=== PATIENT | male | born 1960 | race Caucasian/White ===

== ENCOUNTER 2018-09-04 20:06 | Inpatient (IN) ==
--- OUTSIDE RECORDS SUMMARY | 2018-09-04 20:08 | External Medical Summary | Continuity of Care Document ---
:1960 Author Name Ananya Moon, Provider Address Unavailable Unavailable , Care Team Providers Name Role Phone Eunice Bansal PA-C Unavailable [email or web address] Juan Wong M.D. Unavailable Unavailable Unavailable Unavailable Unavailable Assessments Assessed Problems:Spinal stenosis Problems Spinal stenosis (724.00) (M48.00) Diabetes mellitus (250.00) (E11.9) Hypertension (401.9) (I10) Hyperlipidemia (272.4) (E78.5) Allergies and Adverse Reactions Allergy history not documented Medications Medications not documented Procedures History of Sinus Surgery Status: Complet ed History of Renal Lithotripsy Status: Com pleted History of Knee Arthroscopy (Therapeutic) Status: Completed Immunizations Immunizations not documented Plan of Treatment Planned Observations Planned Goals not documented Results No Known Results Results not documented Encounters Appointment; Eunice Bansal PA-C 17-Sep-2012 9:00 Encounter Diagnosis: Problem not documented
[2018-09-04] MEDS ORDERED: ACETAMINOPHEN 1,000 MG/100 ML VIAL IV STA (20:23)
[2018-09-04] MEDS ORDERED: PIPERACILLIN/TAZOBACTAM 4.5 GM/120 ML BAG IV ONE (20:23)
[2018-09-04] MEDS ORDERED: SODIUM CHLORIDE 0.9% 1000ML 1,000 ML IV ONE (20:23)
[2018-09-04] MEDS ORDERED: ONDANSETRON INJ 2 MG/ML 2 ML VIAL IV STA (20:23)
[2018-09-04] MEDS ORDERED: KETOROLAC TROMETHAMINE 15 MG/ML VIAL IV STA (20:26)
--- NOTE | 2018-09-04 20:45 | XRay Report ---
XR elbow LT min 3V routine CLINICAL HISTORY: fall, pain COMPARISON: None FINDINGS: Alignment of the left elbow is anatomic. Soft tissue swelling overlying the olecranon is n oted. No fracture or evidence for a myelitis. There is no evidence for left elbow joint effusion. IMPRESSION: 1. No acute fracture or joint effusion of the left elbow. 2. No evidence for osteomyelitis. 3. Moderate to marked soft tissue swelling overlying the olecranon. Electronically signed by: Fredis Bryson M.D. 09/04/2018 8:44 PM
[2018-09-04 20:51] LABS: Basophils # (auto) 0.03 K/uL (0-0.2); Basophils % (auto) 0.2 %; Eosinophils # (auto) 0.07 K/uL (0-0.5); Eosinophils % (auto) 0.5 %; Hematocrit (blood only) 33.4 % (42-52); Hemoglobin 11.7 g/dL (14.0-18.0); Immature Granulocytes # (auto) 0.05 K/uL (0.00-0.02); Immature Granulocytes % (auto) 0.3 %; Lymphocytes # (auto) 1.49 K/uL (1.2-3.4); Lymphocytes % (auto) 9.9 %; Mean Corpuscular Volume 82.5 fL (80-100); Mean Platelet Volume 9.1 fL (7.4-10.4); Monocytes # (auto) 1.18 K/uL (0.11-0.59); Monocytes % (auto) 7.9 %; Neutrophils # (auto) 12.17 K/uL (1.4-6.5); Neutrophils % (auto) 81.2 %; Platelet Count 263 K/uL (130-400); RDW Standard Deviation 39.5 fL (36.4-46.3); Red Blood Count 4.05 M/uL (4.7-6.1); White Blood Count 14.99 K/uL (4.8-10.8)
[2018-09-04 21:03] LABS: INR 1.1 (0.9-1.1); Partial Thromboplastin Ratio 1.1; Partial Thromboplastin Time 29.8 Seconds (21.0-31.0); Prothrombin Time 10.9 Seconds (9.0-12.0)
[2018-09-04 21:10] LABS: Albumin Globulin Ratio 0.9 (0.9-2); Albumin Level 3.8 gm/dl (3.4-5.0); BUN Creatinine Ratio 18.4 (10-20); Bilirubin,Total 0.6 mg/dl (0.2-1); Calcium 10.2 mg/dl (8.5-10.1); Creatinine Clr Calc Pharmacy 63.9 ml/min; Est GFR (African American) 52.3; Est GFR (Non-African American) 45.1; Globulin 4.4 gm/dl (2.5-4.0); Potassium 4.3 mmol/L (3.5-5.1); Total Protein 8.2 gm/dl (6.4-8.2)
[2018-09-04 21:21] LABS: Beta-Hydroxybutyrate 1.11 mg/dl (0.2-2.81)
[2018-09-04] MEDS ORDERED: SODIUM CHLORIDE 0.9% 1000ML 500 ML IV ONE (21:22)
[2018-09-04] MEDS ORDERED: NovoLIN-R INSULIN PER UNIT CHARGE IV STA (21:22)
[2018-09-04] MEDS ORDERED: ONDANSETRON INJ 2 MG/ML 2 ML VIAL IV PRN (23:42)
[2018-09-04] MEDS ORDERED: VANCOMYCIN CONSULT ACTIVE PRN (23:42)
[2018-09-04] MEDS ORDERED: NITROGLYCERIN SL 0.4 MG/TAB TAB SL PRN (23:42)
[2018-09-04] MEDS ORDERED: VANCOMYCIN HCL 1,000 MG in SODIUM CHLORIDE 0.9% 250 ML IV SCH (23:42)
[2018-09-04] MEDS ORDERED: PIPERACILL/TAZOBAC CONSULT ACTIVE PRN (23:42)
[2018-09-04] MEDS ORDERED: POLYETHYLENE (MIRALAX) 17 GM PACK PO PRN (23:42)
--- NOTE | 2018-09-04 23:44 | Emergency Department Note ---
Entered by Melody Lara acting as a scribe for History of Present Illness General Chief complaint: Infection Stated complaint: LEFT ELBOW INFECTION Time Seen by Provider: 09/04/18 20:20 Source: patient and family () History of Present Illness Onset (ago): day(s) 1 Location: upper extremity (elbow) and left Pain Consistency: + other (episode ) Maximum Pain Intensity: 6 Quality: + other (possible infection) Associated symptoms: + fever/chills, + loss of appetite, + nausea/vomiting (positive nausea; negative vomiting ) and + other (positive elbow swelling; positive elbow pain) Treatments prior to arrival: other (Tylenol; Ibuprofen) The patient is a 58 year old male who presents to the Emergency Room with complaints of an episode of a possible left elbow infection that began yesterday. The patient states that he fell 3 days ago and hit this elbow. The patient states that he began to have chills yesterday, and states that he was seen in [place] where he was given Amoxicillin. The patient states that his chills persisted today, and states that he has been nauseous and has lost his appetite. The patient denies vomiting. He states that today his elbow is increasingly swollen and painful. The patient's states that the patient has been taking Ibuprofen and Tylenol for his symptoms. Home Medications Home Medications Medication Instructions Recorded Confirmed Type amoxicillin-pot clavulanate 1 tab PO BID 09/04/18 09/04/18 History aspirin 81 mg PO QAM 09/04/18 09/04/18 History atorvastatin 40 mg PO QAM 09/04/18 09/04/18 History cholecalciferol (vitamin D3) 5,000 unit PO QAM 09/04/18 09/04/18 History [Vitamin D3] fenofibrate micronized 134 mg PO QAM 09/04/18 09/04/18 History gabapentin 300 mg PO TID 09/04/18 09/04/18 History glimepiride 4 mg PO BID 09/04/18 09/04/18 History lisinopril-hydrochlorothiazide 1 tab PO QAM 09/04/18 09/04/18 History metformin 1,000 mg PO BID 09/04/18 09/04/18 History oxycodone-acetaminophen 1 tab PO TID PRN 06/26/19 06/26/19 History pioglitazone 30 mg PO QAM 09/04/18 09/04/18 History Allergies Allergy/AdvReac Type Severity Reaction Status Date / Time No Known Allergies Allergy Verified 09/04/18 22:04 Past Med/Surg History Medical History Type 2 diabetes mellitus (Chronic) HTN (hypertension) (Chronic) Social History Preferred Language: Sami Communication Ability: Effective Wheel Adjuster Required: No Beliefs That Will Affect Care: None marital status: Current Living Situation: Spouse Current Living Situation Comment: House Other Information That Helps Us Care for You: No Feels Safe at Home: Yes Safety Concerns: Feels Safe At This Time Smoking Status: Never smoker Hx Alcohol Use: No Hx Substance Use: No Review of Systems See HPI for pertinent positives & negatives. and A total of 10 systems reviewed and were otherwise negative Physical Exam Vital Signs Vital Signs - 24 hr 09/04/18 20:07 09/04/18 21:35 09/04/18 22:01 Temperature 38.4 C H Temperature Source Oral Sepsis Recent Fever Within 48 Hours Yes Sepsis New/Unexplained Change in Mental Status No Sepsis Action Taken by Nursing No Action Required Pulse Rate 109 H 102 H 102 H Pulse Rate from SpO2 Sensor 105 H 102 H Respiratory Rate 18 14 27 H Respiratory Effort / Characteristics Non-Labored Spontaneous Respiratory Depth Normal Respiratory Pattern Regular Blood Pressure 145/97 H 113/73 122/76 Blood Pressure Mean 113 86 91 Blood Pressure Position Sitting Pulse Oximetry 97 88 L 96 Oxygen Delivery Method Room Air 09/04/18 22:31 Temperature Temperature Source Sepsis Recent Fever Within 48 Hours Sepsis New/Unexplained Change in Mental Status Sepsis Action Taken by Nursing Pulse Rate 102 H Pulse Rate from SpO2 Sensor 102 H Respiratory Rate 25 H Respiratory Effort / Characteristics Respiratory Depth Respiratory Pattern Blood Pressure 103/71 Blood Pressure Mean 81 Blood Pressure Position Pulse Oximetry 94 Oxygen Delivery Method GENERAL: Patient is in no acute distress. HEENT: No acute trauma, normocephalic atraumatic, mucous membranes moist, no nasal congestion, no scleral icterus. NECK: No stridor, no adenopathy, no meningismus, trachea is midline. LUNGS: Clear to auscultation bilaterally, no wheeze, no rhonchi, breath sounds equal. HEART: Tachycardic rate and regular rhythm. No murmurs. ABDOMEN: Soft, nontender, bowel sounds positive, no hernias, no peritonitis. EXTREMITIES: Erythema, swelling, and warmth to the left posterior elbow which extends toward the wrist and up towards the shoulder. No drainage. There is f luid in the olecranon bursa space and the area is tender. NEUROLOGIC: Oriented x 3, no acute motor or sensory deficits, no focal weakness. SKIN: No rash, no jaundice, no diaphoresis. Course 2020: Past medical records reviewed. The patient was evaluated in room C1B. A complete history and physical exam was performed. 2126: I discussed the case with Dr. Toby Hendricks Hospitalist who accepts the patient for further evaluation. 2131: I checked on and updated the patient. He is in agreement with the treatment plan. Consultations Consultation #1: I discussed the case with Dr. Toby Hendricks [facility] who accepts the patient for further evaluation. Time: 21:27 Administered Medications Acetaminophen (Tylenol) 650 mg PO Q4H PRN PRN Reason: Pain or Fever Stop: 10/04/18 23:41 Last Admin: 09/05/18 08:39 Dose: 650 mg Documented by: [id number] Admin: 09/05/18 00:02 Dose: 650 mg Documented by: [id number] Aspirin (Ecotrin Ectab) 81 mg PO QAM [facility] Stop: 10/05/18 08:59 Last Admin: 09/05/18 08:26 Dose: 81 mg Documented by: [id number] Atorvastatin Calcium (Lipitor) 40 mg PO QAM [facility] Stop: 10/05/18 08:59 Last Admin: 09/05/18 08:25 Dose: 40 mg Documented by: [id number] Gabapentin (Neurontin) 300 mg PO TID [facility] Stop: 10/05/18 08:59 Last Admin: 09/05/18 12:45 Dose: 300 mg Documented by: [id number] Admin: 09/05/18 08:25 Dose: 300 mg Documented by: [id number] Lisinopril/HCTZ (Prinzide 20/25mg) [facility] Stop: 10/05/18 08:59 Last Admin: 09/05/18 08:27 Dose: 1 tab Documented by: [id number] Hydromorphone HCl (Dilaudid) 0.5 mg IV Q3H PRN PRN Reason: Pain Stop: 09/18/18 23:41 Last Admin: 09/05/18 04:22 Dose: 0.5 mg Documented by: [id number] Admin: 09/05/18 00:03 Dose: 0.5 mg Documented by: [id number] Sodium Chloride (Nss 1000ml) 1,000 mls @ 150 mls/hr IV .Q6H40M [facility] Stop: 10/04/18 23:41 Last Admin: 09/05/18 12:44 Dose: 150 mls/hr Documented by: [id number] Infusion: 09/05/18 12:44 Dose: 150 mls/hr Documented by: [id number] Admin: 09/05/18 06:09 Dose: 150 mls/hr Documented by: [id number] Infusion: 09/05/18 06:09 Dose: 150 mls/hr Documented by: [id number] Admin: 09/05/18 00:02 Dose: 150 mls/hr Documented by: [id number] Piperacillin Sod/Tazobactam (Sod 4.5 gm/ Dextrose) 120 mls @ 30 mls/hr IV Q8H [facility]; Protocol Stop: 09/15/18 01:59 Last Admin: 09/05/18 10:46 Dose: 30 mls/hr Documented by: [id number] Infusion: 09/05/18 06:00 Dose: 0 mls/hr Documented by: [id number] Admin: 09/05/18 02:00 Dose: 30 mls/hr Documented by: [id number] Vancomycin HCl 1,750 mg/ (Sodium Chloride) 535 mls @ 200 mls/hr IV Q12H [facility] Stop: 09/15/18 10:59 Last Infusion: 09/05/18 13:54 Dose: 0 mls/hr Documented by: [id number] Admin: 09/05/18 10:46 Dose: 200 mls/hr Documented by: [id number] Insulin Aspart (Novolog Flexpen) 0 units SC ACHS [facility] Stop: 10/05/18 07:29 Last Admin: 09/05/18 12:40 Dose: 7 units Documented by: [id number] Cosigned by: [id number] Admin: 09/05/18 08:34 Dose: 6 units Documented by: [id number] Cosigned by: [id number] Admin: 09/05/18 01:14 Dose: 5 units Documented by: [id number] Cosigned by: [id number] Insulin Glargine (Lantus Solostar Pen) 10 units SC BID ROJELIO Stop: 10/04/18 22:44 Last Admin: 09/05/18 08:35 Dose: 10 units Documented by: [id number] Cosigned by: [id number] Admin: 09/05/18 00:05 Dose: 10 units Documented by: [id number] Cosigned by: [id number] Miscellaneous (Order Awaiting Action) 1 ea N/A QS [facility] Stop: 10/05/18 00:00 Last Admin: 09/05/18 08:27 Dose: Not Given Documented by: [id number] Admin: 09/05/18 00:02 Dose: Not Given Documented by: [id number] Oxycodone/Acetaminophen (Percocet 5mg/325mg) 1 tab PO TID PRN PRN Reason: Pain Stop: 09/18/18 23:41 Last Admin: 09/05/18 13:38 Dose: 1 tab Documented by: [id number] Admin: 09/05/18 06:06 Dose: 1 tab Documented by: [id number] Vitamin D (Vitamin D3) 5,000 units PO QAM ROJELIO Stop: 10/05/18 08:59 Last Admin: 09/05/18 08:28 Dose: 5,000 units Documented by: [id number] Discontinued Medications Acetaminophen (Ofirmev) 1,000 mg in 100 mls @ 400 mls/hr IV NOW STA Stop: 09/04/18 20:37 Last Infusion: 09/04/18 21:26 Dose: 0 mls/hr Documented by: [id number] Admin: 09/04/18 21:18 Dose: 400 mls/hr Documented by: [id number] Sodium Chloride (Nss 1000ml) 1,000 mls @ 999 mls/hr IV .Q1H1M ONE Stop: 09/04/18 21:23 Last Infusion: 09/04/18 22:19 Dose: 0 mls/hr Documented by: [id number] Admin: 09/04/18 20:53 Dose: 999 mls/hr Documented by: [id number] Piperacillin Sod/Tazobactam Sod (Zosyn) 4.5 gm in 120 mls @ 240 mls/hr IV NOW ONE Stop: 09/04/18 20:52 Last Infusion: 09/04/18 21:27 Dose: 0 mls/hr Documented by: [id number] Admin: 09/04/18 20:56 Dose: 240 mls/hr Documented by: [id number] Sodium Chloride (Nss 1000ml) 500 mls @ 999 mls/hr IV .Q31M ONE Stop: 09/04/18 21:52 Last Infusion: 09/04/18 22:19 Dose: 0 mls/hr Documented by: [id number] Admin: 09/04/18 21:32 Dose: 999 mls/hr Documented by: [id number] Vancomycin HCl 2,500 mg/ (Sodium Chloride) 550 mls @ 200 mls/hr IV TODAY@0000 ROJELIO Stop: 09/05/18 02:44 Last Infusion: 09/05/18 03:40 Dose: 0 mls/hr Documented by: [id number] Admin: 09/05/18 00:55 Dose: 200 mls/hr Documented by: [id number] Insulin Human Regular (Novolin R U-100 Per Unit) 10 units IV NOW STA Stop: 09/04/18 21:23 Last Admin: 09/04/18 21:31 Dose: 10 units Documented by: [id number] Cosigned by: [id number] Ketorolac Tromethamine (Toradol) 15 mg IV NOW STA Stop: 09/04/18 20:27 Last Admin: 09/04/18 20:37 Dose: 15 mg Documented by: [id number] Ondansetron HCl (Zofran) 4 mg IV NOW STA Stop: 09/04/18 20:24 Last Admin: 09/04/18 20:38 Dose: 4 mg Documented by: [id number] Medical Decision Making Differential Diagnosis Differential diagnoses include sepsis, bacteremia, cellulitis, olecranon bursitis, anemia, dehydration, electrolyte imbalance, and others were considered. Medical Records Attestation: I reviewed the patient's medical records. Home Medications Current Medication List: was personally reviewed by me Laboratory Data Attestation: I reviewed the patient's lab results. Result diagrams: 09/05/18 05:27 09/05/18 05:27 Lab Results 09/04/18 09/04/18 09/04/18 Range/Units 20:22 20:22 20:22 WBC 14.99 H (4.8-10.8) K/uL RBC 4.05 L (4.7-6.1) M/uL Hgb 11.7 L (14.0-18.0) g/dL Hct 33.4 L (42-52) % MCV 82.5 (80-100) fL MCH 28.9 (25-34) pg MCHC 35.0 (32-36) g/dL RDW Std Deviation 39.5 (36.4-46.3) fL RDW Coeff of Daniel 13.0 (11.5-14.5) % Plt Count 263 (130-400) K/uL MPV 9.1 (7.4-10.4) fL Immature Gran % (Auto) 0.3 % Neut % (Auto) 81.2 % Lymph % (Auto) 9.9 % [place] % (Auto) 7.9 % Eos % (Auto) 0.5 % Baso % (Auto) 0.2 % Immature Gran # (Auto) 0.05 H (0.00-0.02) K/uL Neut # (Auto) 12.17 H (1.4-6.5) K/uL Lymph # (Auto) 1.49 (1.2-3.4) K/uL [place] # (Auto) 1.18 H (0.11-0.59) K/uL Eos # (Auto) 0.07 (0-0.5) K/uL Baso # (Auto) 0.03 (0-0.2) K/uL PT 10.9 (9.0-12.0) Seconds INR 1.1 (0.9-1.1) APTT 29.8 (21.0-31.0) Seconds PTT Ratio 1.1 Sodium 130 L (136-145) mmol/L Potassium 4.3 (3.5-5.1) mmol/L Chloride 98 (98-107) mmol/L Carbon Dioxide 23 (21-32) mmol/L Anion Gap 9.0 (3-11) BUN 30 H (7-18) mg/dl Creatinine 1.65 H (0.6-1.4) mg/dl Est Cr Clr Drug Dosing 63.9 ml/min Est GFR ( Amer) 52.3 Est GFR (Non-Af Amer) 45.1 BUN/Creatinine Ratio 18.4 (10-20) Glucose 420 H* (70-99) mg/dl POC Glucose (70-99) POC Lactic Acid Joseph (0.90-1.70) mmol/L Calcium 10.2 H (8.5-10.1) mg/dl Total Bilirubin 0.6 (0.2-1) mg/dl AST 9 L (15-37) U/L ALT 21 (12-78) U/L Alkaline Phosphatase 66 (45-117) U/L Total Protein 8.2 (6.4-8.2) gm/dl Albumin 3.8 (3.4-5.0) gm/dl Globulin 4.4 H (2.5-4.0) gm/dl Albumin/Globulin Ratio 0.9 (0.9-2) Beta-Hydroxybutyric Acd 1.11 (0.2-2.81) mg/dl Procalcitonin (0-0.5) ng/ml 09/04/18 09/04/18 09/04/18 Range/Units 20:28 20:45 22:17 WBC (4.8-10.8) K/uL RBC (4.7-6.1) M/uL Hgb (14.0-18.0) g/dL Hct (42-52) % MCV (80-100) fL MCH (25-34) pg MCHC (32-36) g/dL RDW Std Deviation (36.4-46.3) fL RDW Coeff of Daniel (11.5-14.5) % Plt Count (130-400) K/uL MPV (7.4-10.4) fL Immature Gran % (Auto) % Neut % (Auto) % Lymph % (Auto) % [place] % (Auto) % Eos % (Auto) % Baso % (Auto) % Immature Gran # (Auto) (0.00-0.02) K/uL Neut # (Auto) (1.4-6.5) K/uL Lymph # (Auto) (1.2-3.4) K/uL [place] # (Auto) (0.11-0.59) K/uL Eos # (Auto) (0-0.5) K/uL Baso # (Auto) (0-0.2) K/uL PT (9.0-12.0) Seconds INR (0.9-1.1) APTT (21.0-31.0) Seconds PTT Ratio Sodium (136-145) mmol/L Potassium (3.5-5.1) mmol/L Chloride (98-107) mmol/L Carbon Dioxide (21-32) mmol/L Anion Gap (3-11) BUN (7-18) mg/dl Creatinine (0.6-1.4) mg/dl Est Cr Clr Drug Dosing ml/min Est GFR ( Amer) Est GFR (Non-Af Amer) BUN/Creatinine Ratio (10-20) Glucose (70-99) mg/dl POC Glucose 291 H (70-99) POC Lactic Acid Joseph 1.83 H (0.90-1.70) mmol/L Calcium (8.5-10.1) mg/dl Total Bilirubin (0.2-1) mg/dl AST (15-37) U/L ALT (12-78) U/L Alkaline Phosphatase (45-117) U/L Total Protein (6.4-8.2) gm/dl Albumin (3.4-5.0) gm/dl Globulin (2.5-4.0) gm/dl Albumin/Globulin Ratio (0.9-2) Beta-Hydroxybutyric Acd (0.2-2.81) mg/dl Procalcitonin 0.76 H (0-0.5) ng/ml Imaging Data Radiologist's Impression: Radiology results as stated below per my review and the radiologist's interpretation: XR elbow LT min 3V routine CLINICAL HISTORY: fall, pain COMPARISON: None FINDINGS: Alignment of the left elbow is anatomic. Soft tissue swelling overlying the olecranon is noted. No fracture or evidence for a myelitis. There is no evidence for left elbow joint effusion. IMPRESSION: 1. No acute fracture or joint effusion of the left elbow. 2. No evidence for osteomyelitis. 3. Moderate to marked soft tissue swelling overlying the olecranon. Electronically signed by: Fredis Bryson M.D. 09/04/2018 8:44 PM Blood Pressure Blood Pressure Findings: Normal blood pressure MDM Narrative There is a mild leukocytosis at 14.9, this is consistent with infection. A mild anemia was present with a hemoglobin of 11.7. No coagulopathy. Renal panel testing shows some possible dehydration/renal insufficiency with a creatinine of 1.6. The patient's blood sugar was quite high at 420. Sodium was low at 130, likely from the higher sugar value. Fccvd-yd-qabd lactic acid level was 1.8, not significantly elevated. Procalcitonin was mildly elevated. No evidence for liver enzyme elevation. Left elbow film did not show fracture or large joint effusion. The patient received IV saline, he was given IV insulin, IV Zosyn as antibiotic coverage. He received IV Tylenol, IV Toradol and IV Zofran. A second bolus of IV saline was given. The patient has a left arm cellulitis and left elbow olecranon bursitis. He is failing outpatient treatment, he has not had any improvement on the amoxicillin. He presents febrile and tachycardic and I am somewhat concerned for sepsis. I did speak with the on-call hospitalist, I talked with the patient. Case management has been involved. Admission/observation is warranted. Impression & Plan Left arm cellulitis, Olecranon bursitis of left elbow, Hyperglycemia, Failure of outpatient treatment Critical Care Time Critical Care Time: Yes Total Critical Care Time: 36 I have personally spent greater than 36 minutes of critical care time in the direct management of this patient. This includes bedside care, interpretation of diagnostic studies and testing, discussion with consultants, the patient, and family members, and other required patient management activities. This 36 minutes is in excess of all separately billable procedures. Discharge Plan Visit Data *Final* Discharge Date/Time: 09/04/18 23:09 Chief Complaint: Infection Stated Complaint: LEFT ELBOW INFECTION ED Provider: Dave Armijo Discharge Problem: Left arm cellulitis, Olecranon bursitis of left elbow, Hyperglycemia, Failure of outpatient treatment Patient Disposition: Admitted As Inpatient Discharge Instructions Interventions: ED Discharge Assessment Last Done: 09/04/18 23:09 The scribe's documentation has been prepared under my direction and personally reviewed by me in its entirety. I confirm that the note above accurately reflects all work, treatment, procedures, and medical decision making performed by me.
[2018-09-04] MEDS ORDERED: CARBOHYDRATES FOR HYPOGLYCEMIA PO PRN (23:45)
[2018-09-04] MEDS ORDERED: GLUCAGON FOR INJ 1 MG VIAL SQ PRN (23:45)
[2018-09-04] MEDS ORDERED: DEXTROSE 50% 50 ML SYRINGE IV PRN (23:45)
[2018-09-04] MEDS ORDERED: GLUCOSE 10 TABS/TUBE PO PRN (23:45)
[2018-09-04] MEDS ORDERED: GLUCOSE 40% GEL 15 GM TUBE PO PRN (23:45)
[2018-09-05] MEDS ORDERED: VANCOMYCIN HCL 2,500 MG in SODIUM CHLORIDE 0.9% 500 ML IV SCH
[2018-09-05] MEDS: ACETAMINOPHEN 325 MG TAB PO PRN ×3 (00:02→20:51)
[2018-09-05] MEDS: FENOFIBRATE~ORDER AWAITING ACTION SCH ×3 (00:02→15:11)
[2018-09-05] MEDS: SODIUM CHLORIDE 0.9% 1000ML 1,000 ML IV SCH ×4 (00:02→20:51)
[2018-09-05] MEDS: HYDROmorphone INJ 0.5 MG/0.5 ML SYR IV PRN ×3 (00:03→21:04)
[2018-09-05] MEDS: INSULIN GLARGINE SOLOSTAR 100 UNITS/ML 3 ML PEN SC SCH ×3 (00:05→20:52)
[2018-09-05] MEDS: INSULIN ASPART 100 UNITS/ML 3 ML PEN SC SCH ×5 (01:14→20:54)
[2018-09-05] MEDS: PIPERACILLIN/TAZOBACTAM 4.5 GM in DEXTROSE 5% 100 ML IV SCH ×3 (02:00→17:54)
--- NOTE | 2018-09-05 02:33 | History and Physical Report ---
DATE OF ADMISSION: 09/04/2018 CHIEF COMPLAINT: Left elbow infection. HISTORY OF PRESENT ILLNESS: This is a 58-year-old male with past medical history significant for diabetes, hypertension, high triglycerides, metabolic syndrome, seasonal allergies, vitamin D deficiency, lumbosacral disk degeneration, presents with left elbow infection. The patient on Sunday tripped over and fell on his left elbow. There was some minor scratch, for which he put hydrogen peroxide, but yesterday it started to swell and have painful movements. So he went to family doctor and prescribed Augmentin, but last night he was having fevers, he was not getting better. He has had difficulty moving his left elbow. So he came here and he has swelling and erythema around left elbow extending into the arm and forearm. He had a spiking temperature, mild tachycardia, elevation of white count, and was treated with Zosyn in the ER. Currently resting comfortably, hemodynamically stable except for swelling of the left elbow and pain denies any other complaint. Denies any headache, no dizziness, no blurred vision, no earache, no runny nose, no sore throat, no difficulty swallowing. Appetite is okay. No chest pain, no shortness of breath, no cough. Was nauseous earlier, but that has improved now. No abdominal pain. Normal bowel and bladder movements. No blood in the stool, no black stools, no hematuria, no burning micturition. No swelling of the legs. Otherwise active. ALLERGIES: CEPHALEXINS. PAST MEDICAL HISTORY: As mentioned above. PAST SURGICAL HISTORY: Maxillary sinus endoscopy. MEDICATIONS: The patient is on Augmentin, metformin 1000 mg p.o. b.i.d., glimepiride 4 mg p.o. b.i.d., fenofibrate 134 mg daily, atorvastatin 40 mg p.o. daily, Actos 30 mg p.o. daily, lisinopril/hydrochlorothiazide 20/25 mg daily, gabapentin 300 mg p.o. t.i.d., oxycodone/acetaminophen 5/325 mg p.r.n., Nasonex 2 sprays each nostril daily, vitamin D 5000 units p.o. daily. FAMILY HISTORY: No family history on file. SOCIAL HISTORY: . No smoking, no alcohol, no drug use. REVIEW OF SYSTEMS: As per HPI. Rest of the review of systems negative. PHYSICAL EXAMINATION: GENERAL: The patient is obese, not in acute distress. VITAL SIGNS: Temperature 38.4, pulse 109, respiratory rate 18, blood pressure 145/97, oxygen 97% room air. HEENT: No pallor, no icterus. Pupils equal, round, reactive to light. NECK: No JVD, no neck masses, no carotid bruit. CARDIOVASCULAR: S1, S2 heard, regular rate and rhythm, no murmur, no gallop. RESPIRATORY SYSTEM: Normal AP diameter. No accessory muscle use. No wheezing, no crackles. ABDOMEN: Soft, bowel sounds present. Nontender. No distention. CENTRAL NERVOUS SYSTEM: Cranial nerves II-XII grossly intact. Nonfocal. EXTREMITIES: Erythema involving Right elbow and right dorsal aspect of forearm and arm. Warm and tender on palpation, painful left elbow movements. LABORATORY DATA: WBC 14.9, hemoglobin 11.7, hematocrit 33.4, platelets 263. PT 10.9, INR 1.13, APTT 29.8. Sodium 130, potassium 4.3, chloride 98, bicarbonate 23, BUN 30, creatinine 1.65, serum glucose 420. Point of care lactic acid 1.8, calcium 10.2, total bilirubin 0.6, AST 9, ALT 21, alkaline phosphatase 66, beta-hydroxybutyric acid 1.1, procalcitonin 0.76. IMAGING DATA: Elbow x-ray, no acute findings except for soft tissue swelling overlying the olecranon. ASSESSMENT AND PLAN: This is a 58-year-old male who presents with right elbow infection. 1. Right elbow infection, possible olecranon bursitis versus cellulitis which started after a fall on Sunday on the elbow. Sepsis, meets criteria for sepsis with tachycardia, temp spike, elevation of white count, mild elevation of point of care lactic acid, and infection of the left elbow. Received IV Zosyn in the ER. We will place on IV Zosyn and IV vancomycin. Follow the cultures. IV fluids normal saline at 150 mL per hour. Follow the repeat lactic acid and consult ortho for further recommendations. Monitor on the med/surg tele. 2. Diabetes. Hyperglycemia glucose of 420, possibly from infection. Will hold home p.o. medications of metformin, glyburide, and pioglitazone. Received 10 units of IV regular insulin in the ER. We will place him on Lantus 10 units b.i.d. and insulin sliding scale. Follow HbA1c levels, follow the blood sugars while in the hospital. 3. History of hypertension, continue hydralazine, lisinopril, hydrochlorothiazide withholding parameters. 4. Hyperlipidemia. Continue his home atorvastatin and fenofibrate. 5. Chronic back pain. Continue his home pain medications. 6. Acute kidney injury, baseline creatinine of 0.8, presently creatinine of 1.6 possibly from infection and hyperglycemia. Getting fluids. We will follow the labs. 7. Hyponatremia. Sodium 130, possibly from pseudohyponatremia from elevated blood sugars. Will follow the labs in the a.m. 8. Hypercalcemia, calcium 10.2. Follow the labs in a.m., probably from dehydration. 9. Deep venous thrombosis prophylaxis, sequential compression devices for now. 10. Disposition: Admit to med/surg tele. Level 1 full code. MTDD
[2018-09-05 05:38] LABS: Basophils # (auto) 0.02 K/uL (0-0.2); Basophils % (auto) 0.2 %; Eosinophils # (auto) 0.08 K/uL (0-0.5); Eosinophils % (auto) 0.8 %; Hematocrit (blood only) 28.4 % (42-52); Hemoglobin 9.7 g/dL (14.0-18.0); Immature Granulocytes # (auto) 0.03 K/uL (0.00-0.02); Immature Granulocytes % (auto) 0.3 %; Lymphocytes # (auto) 1.42 K/uL (1.2-3.4); Lymphocytes % (auto) 13.8 %; Mean Corpuscular Hgb Conc 34.2 g/dL (32-36); Mean Corpuscular Volume 82.1 fL (80-100); Mean Platelet Volume 8.6 fL (7.4-10.4); Monocytes # (auto) 0.91 K/uL (0.11-0.59); Monocytes % (auto) 8.9 %; Neutrophils # (auto) 7.82 K/uL (1.4-6.5); Platelet Count 197 K/uL (130-400); RDW Standard Deviation 39.2 fL (36.4-46.3); Red Blood Count 3.46 M/uL (4.7-6.1); White Blood Count 10.28 K/uL (4.8-10.8)
[2018-09-05 06:04] LABS: Estimated Average Glucose 341 mg/dl; Hemoglobin A1C 13.5 % (4.5-5.6)
[2018-09-05] MEDS: OXYCODONE/ACETAMINOPHEN 5mg/325mg TAB PO PRN ×4 (06:06→22:26)
[2018-09-05 06:17] LABS: BUN Creatinine Ratio 23.1 (10-20); Calcium 8.1 mg/dl (8.5-10.1); Creatinine Clr Calc Pharmacy 84.1 ml/min; Est GFR (African American) 72.4; Est GFR (Non-African American) 62.5; Magnesium 1.8 mg/dl (1.8-2.4); Potassium 3.8 mmol/L (3.5-5.1)
[2018-09-05] MEDS: GABAPENTIN 300 MG CAP PO SCH ×3 (08:25→20:54)
[2018-09-05] MEDS: ATORVASTATIN 40 MG TAB PO SCH (08:25)
[2018-09-05] MEDS: ASPIRIN 81 MG ECTAB PO SCH (08:26)
[2018-09-05] MEDS: LISINOPRIL/HCTZ 20/25MG 1 TAB PO SCH (08:27)
[2018-09-05] MEDS: CHOLECALCIFEROL 1,000 UNITS TAB PO SCH (08:28)
--- NOTE | 2018-09-05 10:38 | Hospitalist Progress Note ---
Date of Service September 05, 2018 Assessment & Plan (1) Left arm cellulitis: (2) Olecranon bursitis of left elbow: (3) Hyperglycemia: (4) Type 2 diabetes mellitus: (5) HTN (hypertension): Continue Zosyn, IVFs, ortho to see Labs checked ROS-No Headache, No Visual Changes, No Nausea, No Vomiting, +Fever, +Chills, No Neck Pain or Stiffness, No Chest Pain, No Palpitations, No SOB, No ALAMO, No Cough, No Sputum, No Wheezing, No Abdominal Pain, No Diarrhea, No Hematemesis, No Hemoptysis, No Unexpected Weight Loss, No Flank pain, No Melena, No Hematochezia, No Frequency, No Urgency, No Burning, No Hematuria, No Rashes, No Diaphoresis. Appetite is Normal, +L elbow pain, swelling Physical Exam Gen-AAO x 3, NAD, Febrile Head-NCAT, EOMI, PERRLA, Anicteric Sclera, No Posterior Pharyngeal Erythema Neck-Supple, No JVD, No Thyromegaly, No Masses, No LAD, No Bruits Lungs-Clear to Auscultation Bilaterally, No Rales, No Rhonchi, No Wheezing, No Crepitus Chest-No S4, +S1, +S2, No S3, No Murmurs, No Rubs, No Gallops, No Ectopy Abdomen-Soft, Bowel Sounds Present, Non Tender, Non Distended, No Hepatomegaly, No Splenomegaly, No Palpable Masses, No Rebound, No Rigidity, No Guarding Musculoskeletal-Full Range of Motion Bilaterally, No CVAT Extremities-L elbow swelling and tenderness Nuero-Cranial Nerves II-XII grossly intact, Motor WNL, DTRs WNL, Strength WNL, Non Focal Psych-Normal Mood Results & Data Vital Signs (Past 12 Hours) Vital Signs Temp Pulse Pulse Resp BP BP Pulse Ox 09/05/18 07:12 37.6 C H 102 H 20 114/69 95 09/05/18 04:55 37.6 C H 96 H 20 104/73 94 09/05/18 00:44 96 H 09/05/18 00:30 38.1 C H 18 118/72 95 09/04/18 23:14 37.6 C H 09/04/18 23:01 100 H 25 H 96/66 L 92
[2018-09-05] MEDS: VANCOMYCIN HCL 1,750 MG in SODIUM CHLORIDE 0.9% 500 ML IV SCH ×2 (10:46→22:26)
[2018-09-05 11:44] LABS: Appearance Urine Clear (Clear); Bacteria Urine Automated Negative (Negative); Bilirubin Urine Negative (Negative); Blood Urine Negative (Negative); Color Urine Yellow; Epithelial Cell Urine Auto >30 /lpf (0-5); Glucose Urine UA 3+ (Negative); Ketones Urine Negative (Negative); Leukocyte Esterase Urine Trace (Negative); Nitrite Urine Negative (Negative); Protein Urine Trace (Negative); RBC Urine Automated 0-4 /hpf (0-4); Urobilinogen Urine Negative (Negative)
--- NOTE | 2018-09-05 13:52 | Pharmacy Report ---
Pharmacy Abx Initial Consult - Date of Service September 05, 2018 - Pharmacy Dosing Scope Date of Consult: 09/05/18 Consultation requested by: Dr. Luis Pharmacy is consulted to initiate Vancomycin IV/PO dosing therapy, order appropriate labs and adjust drug dose/frequency. - Subjective The patient is a 58 year old M admitted on 09/04/18 22:37. - Objective Height: 5 ft 11 in Weight: 119.7 kg Vital Signs (Past 12hrs): Vital Signs Temp Pulse Resp BP Pulse Ox 09/05/18 11:25 36.8 C 89 18 106/64 95 09/05/18 07:12 37.6 C H 102 H 20 114/69 95 09/05/18 04:55 37.6 C H 96 H 20 104/73 94 Lab Results (24hrs): Laboratory Tests (24 Hours) 09/05/18 09/05/18 09/04/18 05:27 05:27 20:45 WBC 10.28 Neut # (Auto) 7.82 H Creatinine 1.26 D Est Cr Clr Drug Dosing 84.1 Procalcitonin 0.76 H 09/04/18 09/04/18 20:22 20:22 WBC 14.99 H Neut # (Auto) 12.17 H Creatinine 1.65 H Est Cr Clr Drug Dosing 63.9 Procalcitonin Micro Results: 09/05/18 11:16 Urine Culture - Pending Urine,Clean Catch 09/04/18 20:45 Aerobic Blood Culture - Pending Blood Anaerobic Blood Culture - Pending 09/04/18 20:22 Aerobic Blood Culture - Pending Blood Anaerobic Blood Culture - Pending - Risk Factors for Resistance * Antimicrobial use within the last 90 days [Augmentin] - Assessment & Plan Assessment 58 year old M admitted with L elbow infection. He was prescribed Augmentin as outpatient on 09/03/18 for the same infection but most likely took only 2 or maybe 3 doses of this. Patient has poorly controlled type 2 diabetes which is contributing to the poorly healing infection. Vancomycin + Zosyn was ordered for elbow cellulitis. Plan Vancomycin IV * Estimated PK Parameters: Vd 0.7 L/kg, Herbert 0.074 hr-1, t1/2 9.4 hr * Loading dose: Vancomycin 2500 mg (21 mg/kg) x 1 dose given at 00:55 last night. * Maintenance dose: 1750 mg IV (14.8 mg/kg) every 12 hours started this AM at 11:00. * Goal trough level for Cellulitis: ~15 mcg/mL * Trough level ordered for 09/06/18 at 10:30 after only 2 maintenance doses. So this level will not be at steady state. * A less than traditional dose have been selected due to likelihood of drug accumulation in obese patient. Pharmacy will continue to follow and make dose adjustments as necessary. Thank you.
--- NOTE | 2018-09-05 20:46 | Orthopedic Consultation ---
Date of Consultation September 05, 2018 Assessment & Plan (1) Left arm cellulitis: Left upper extremity cellulitis with olecranon bursitis. No surgical intervention indicated at this time. Continue with IV antibiotics Zosyn and vancomycin per medical team. Nonweightbearing left upper extremity, ice and elevation. Trend inflammatory labs. We will continue to monitor. If symptoms persist or worsen would recommend irrigation debridement of left olecranon bursa. Thank you for the consultation. History of Present Illness Reason for Consultation: Left upper extremity cellulitis Attending Physician: Padilla Conteh DO History of Present Illness The patient is a 58-year-old male with past medical history for diabetes, hypertension, HLD, metabolic syndrome who presents with complaints of left upper extremity pain and swelling. Reports that on 09/01/2018 he sustained a abrasion to his left elbow and subsequent pain and swelling over the last several days which has progressed. Reports fevers intermittently. Currently denies fevers chills nausea vomiting shortness of breath or chest pain. Denies numbness and tingling of left upper extremity. He was prescribed Augmentin by his PCP. His symptoms progressed which prompted him to be evaluated at [facility] emergency department. The patient was found to have elevated white count and admitted for further inpatient treatment including IV antibiotics. Allergies Allergy/AdvReac Type Severity Reaction Status Date / Time No Known Allergies Allergy Verified 09/04/18 22:04 Home Medications Home Medications Medication Instructions Recorded Confirmed Type amoxicillin-pot clavulanate 1 tab PO BID 09/04/18 09/04/18 History aspirin 81 mg PO QAM 09/04/18 09/04/18 History atorvastatin 40 mg PO QAM 09/04/18 09/04/18 History cholecalciferol (vitamin D3) 5,000 unit PO QAM 09/04/18 09/04/18 History [Vitamin D3] fenofibrate micronized 134 mg PO QAM 09/04/18 09/04/18 History gabapentin 300 mg PO TID 09/04/18 09/04/18 History glimepiride 4 mg PO BID 09/04/18 09/04/18 History lisinopril-hydrochlorothiazide 1 tab PO QAM 09/04/18 09/04/18 History metformin 1,000 mg PO BID 09/04/18 09/04/18 History oxycodone-acetaminophen 1 tab PO TID PRN 09/04/18 09/04/18 History pioglitazone 30 mg PO QAM 09/04/18 09/04/18 History Patient History Medical History Type 2 diabetes mellitus (Chronic) HTN (hypertension) (Chronic) Social History Preferred Language: [place] Communication Ability: Effective Transport Analyst Required: No Beliefs That Will Affect Care: None marital status: Current Living Situation: Spouse Current Living Situation Comment: House Other Information That Helps Us Care for You: No Feels Safe at Home: Yes Safety Concerns: Feels Safe At This Time Smoking Status: Never smoker Hx Alcohol Use: No Hx Substance Use: No Review of Systems Review of Systems: All systems reviewed & are unremarkable except as noted in HPI & below Constitutional: as per Subjective / HPI Physical Exam Physical Exam: Left upper extremity is neurovascular sensory intact, + median/ulnar/radial/AIN +2 radial pulse, compartments soft and nontender, localized tenderness overlying the elbow, there is mild erythema and moderate edema surrounding the left posterior elbow, this is not circumferential, limited range of motion 15 to 90 degrees of flexion, only has pain with endpoint flexion and extension. No elbow effusion appreciated. No induration, fluctuance or drainage. + Olecranon bursitis. Constitutional: WD/WN, vitals as above Results & Data Vital Signs (Past 12 Hours) Vital Signs Temp Pulse Pulse Resp BP Pulse Ox 09/05/18 19:28 38.3 C H 99 H 18 105/60 93 09/05/18 15:33 37.9 C H 98 H 18 100/65 91 09/05/18 15:00 98 H 09/05/18 11:25 36.8 C 89 18 106/64 95 Diagnostic Findings XR elbow LT min 3V routine CLINICAL HISTORY: fall, pain COMPARISON: None FINDINGS: Alignment of the left elbow is anatomic. Soft tissue swelling overlying the olecranon is noted. No fracture or evidence for a myelitis. There is no evidence for left elbow joint effusion. IMPRESSION: 1. No acute fracture or joint effusion of the left elbow. 2. No evidence for osteomyelitis. 3. Moderate to marked soft tissue swelling overlying the olecranon.
[2018-09-06] MEDS: HYDROmorphone INJ 0.5 MG/0.5 ML SYR IV PRN ×5 (00:05→23:43)
[2018-09-06] MEDS: FENOFIBRATE~ORDER AWAITING ACTION SCH ×3 (00:09→13:19)
[2018-09-06] MEDS: SODIUM CHLORIDE 0.9% 1000ML 1,000 ML IV SCH ×5 (02:14→20:01)
[2018-09-06] MEDS: PIPERACILLIN/TAZOBACTAM 4.5 GM in DEXTROSE 5% 100 ML IV SCH ×3 (02:14→19:21)
[2018-09-06] MEDS: OXYCODONE/ACETAMINOPHEN 5mg/325mg TAB PO PRN ×2 (02:31→08:11)
[2018-09-06 07:07] LABS: Basophils # (auto) 0.04 K/uL (0-0.2); Basophils % (auto) 0.4 %; Eosinophils # (auto) 0.18 K/uL (0-0.5); Eosinophils % (auto) 1.7 %; Hematocrit (blood only) 27.4 % (42-52); Hemoglobin 9.3 g/dL (14.0-18.0); Immature Granulocytes # (auto) 0.03 K/uL (0.00-0.02); Immature Granulocytes % (auto) 0.3 %; Lymphocytes # (auto) 1.55 K/uL (1.2-3.4); Lymphocytes % (auto) 14.6 %; Mean Corpuscular Hgb Conc 33.9 g/dL (32-36); Mean Corpuscular Volume 83.5 fL (80-100); Mean Platelet Volume 8.7 fL (7.4-10.4); Monocytes # (auto) 1.06 K/uL (0.11-0.59); Neutrophils # (auto) 7.76 K/uL (1.4-6.5); Platelet Count 223 K/uL (130-400); RDW Coefficient of Variation 13.3 % (11.5-14.5); RDW Standard Deviation 40.9 fL (36.4-46.3); Red Blood Count 3.28 M/uL (4.7-6.1); White Blood Count 10.62 K/uL (4.8-10.8)
--- NOTE | 2018-09-06 07:13 | Hospitalist Progress Note ---
Date of Service September 06, 2018 Assessment & Plan (1) Left arm cellulitis: (2) Olecranon bursitis of left elbow: (3) Hyperglycemia: (4) Type 2 diabetes mellitus: (5) HTN (hypertension): Continue Zosyn and Vanco, IVFs, ortho rec IV Abx, no surgery unless it worsens, Leukocytosis has resolved, still febrile, Ortho to see, await input Labs checked, still operator and fluctuant, Still swollen Plan to DC tomorrow on Keflex and Doxy if fever gone ROS-No Headache, No Visual Changes, No Nausea, No Vomiting, +Fever, +Chills, No Neck Pain or Stiffness, No Chest Pain, No Palpitations, No SOB, No ALAMO, No Cough, No Sputum, No Wheezing, No Abdominal Pain, No Diarrhea, No Hematemesis, No Hemoptysis, No Unexpected Weight Loss, No Flank pain, No Melena, No Hematochezia, No Frequency, No Urgency, No Burning, No Hematuria, No Rashes, No Diaphoresis. Appetite is Normal, +elbow pain, +swelling Physical Exam Gen-AAO x 3, NAD, Febrile Head-NCAT, EOMI, PERRLA, Anicteric Sclera, No Posterior Pharyngeal Erythema Neck-Supple, No JVD, No Thyromegaly, No Masses, No LAD, No Bruits Lungs-Clear to Auscultation Bilaterally, No Rales, No Rhonchi, No Wheezing, No Crepitus Chest-No S4, +S1, +S2, No S3, No Murmurs, No Rubs, No Gallops, No Ectopy Abdomen-Soft, Bowel Sounds Present, Non Tender, Non Distended, No Hepatomegaly, No Splenomegaly, No Palpable Masses, No Rebound, No Rigidity, No Guarding Musculoskeletal-Full Range of Motion Bilaterally, No CVAT Extremities-L elbow swelling and tenderness c little improvement if any Nuero-Cranial Nerves II-XII grossly intact, Motor WNL, DTRs WNL, Strength WNL, Non Focal Psych-Normal Mood Results & Data Vital Signs (Past 12 Hours) Vital Signs Temp Pulse Pulse Resp BP Pulse Ox 09/06/18 04:00 37.0 C 94 H 20 105/67 92 09/06/18 00:00 100 H 09/05/18 23:14 37.6 C H 100 H 18 114/64 93 09/05/18 19:28 38.3 C H 99 H 18 105/60 93
[2018-09-06 07:39] LABS: C Reactive Protein 18.4 mg/dl (0-0.29); Creatinine Clr Calc Pharmacy 104.4 ml/min; Est GFR (African American) 91.3; Est GFR (Non-African American) 78.8
[2018-09-06] MEDS: LISINOPRIL/HCTZ 20/25MG 1 TAB PO SCH (08:12)
[2018-09-06] MEDS: CHOLECALCIFEROL 1,000 UNITS TAB PO SCH (08:13)
[2018-09-06] MEDS: GABAPENTIN 300 MG CAP PO SCH ×3 (08:13→20:48)
[2018-09-06] MEDS: ASPIRIN 81 MG ECTAB PO SCH (08:13)
[2018-09-06] MEDS: ATORVASTATIN 40 MG TAB PO SCH (08:14)
[2018-09-06] MEDS: INSULIN ASPART 100 UNITS/ML 3 ML PEN SC SCH ×4 (08:22→20:49)
[2018-09-06] MEDS: INSULIN GLARGINE SOLOSTAR 100 UNITS/ML 3 ML PEN SC SCH ×2 (08:23→20:50)
--- NOTE | 2018-09-06 08:37 | Orthopedic Progress Note ---
Date of Service September 06, 2018 Assessment & Plan (1) Olecranon bursitis of left elbow: Worsening Left Olecranon bursitis per patient. Pt has already eaten breakfast this AM. Will need to be 8 hours NPO. NPO ordered for possible I&D. Will discuss case with Dr. Marquez and have him examine the pt today for final decision. Subjective Pt seen yesterday in consult for Olecranon bursitis. This morning, he is sitting up at the bedside and has finished eating breakfast. He states that he feels the elbow is worse today noting the pain is starting to travel further up the arm than it did yesterday. Denies axillary discomfort. Denies discomfort in the wrist/hand. Physical Exam Physical Exam: Pt still with decent ROM of the elbow with pain. Noted erythema at the left elbow traveling proximal to the mid upper arm and distal to mid forearm. Mild fluctuance at at the elbow. Swelling noted proximally/distally. Results & Data Vital Signs (Past 12 Hours) Vital Signs Temp Pulse Pulse Resp BP Pulse Ox 09/06/18 07:15 37.3 C 99 H 20 101/70 90 09/06/18 04:00 37.0 C 94 H 20 105/67 92 09/06/18 00:00 100 H 09/05/18 23:14 37.6 C H 100 H 18 114/64 93
[2018-09-06] MEDS ORDERED: VANCOMYCIN TROUGH ONE ×2 (10:30)
[2018-09-06] MEDS: VANCOMYCIN HCL 1,750 MG in SODIUM CHLORIDE 0.9% 500 ML IV SCH ×2 (11:10→23:35)
--- NOTE | 2018-09-06 11:36 | Pharmacy Report ---
Pharmacy Abx Dose Progress Nt - Date of Service September 06, 2018 - Pharmacy Dosing Scope The patient is currently receiving the following antimicrobial agents per Pharmacy consult: Vancomycin 1,750 mg IV every 12 hours + Zosyn 4.5g IV Q8hrs (per extended interval infusion dosing) - Objective Vital Signs (Past 12hrs): Vital Signs Temp Pulse Pulse Resp BP Pulse Ox 09/06/18 11:15 37.6 C H 105 H 18 137/77 95 09/06/18 07:15 37.3 C 99 H 20 101/70 90 09/06/18 04:00 37.0 C 94 H 20 105/67 92 09/06/18 00:00 100 H Lab Results (24hrs): Laboratory Tests (24 Hours) 09/06/18 09/06/18 09/06/18 10:22 06:41 06:41 WBC 10.62 Neut # (Auto) 7.76 H ESR 75 H Creatinine Est Cr Clr Drug Dosing C-Reactive Protein Vancomycin Trough 11.4 09/06/18 06:41 WBC Neut # (Auto) ESR Creatinine 1.04 Est Cr Clr Drug Dosing 104.4 C-Reactive Protein 18.40 H Vancomycin Trough Micro Results: Microbiology 09/05/18 11:16 Urine,Clean Catch Urine Culture - Preliminary Yeast 09/04/18 20:45 Blood Aerobic Blood Culture - Preliminary 09/04/18 20:45 Blood Anaerobic Blood Culture - Preliminary No growth in Aerobic bottle after 24 hours. No growth in Anaerobic bottle after 24 hours. 09/04/18 20:22 Blood Aerobic Blood Culture - Preliminary 09/04/18 20:22 Blood Anaerobic Blood Culture - Preliminary No growth in Aerobic bottle after 24 hours. No growth in Anaerobic bottle after 24 hours. - Risk Factors for Resistance * Antimicrobial use within the last 90 days: Augmentin - Assessment & Plan Assessment 58 year old M receiving Vanco + Zosyn for treatment of SST (L elbow) Day # 3 of antimicrobial therapy Plan Vancomycin IV * Trough level of 11.4 mcg/mL is slightly -subtherapeutic; however patient with BMI >35 therefore vanco likely to continue to accumulate until steady state is reached. Additionally, combination of Vanco+Zosyn can induce ABDIRASHID the refore will dose cautiously in obese patient. * Continue dose of 1,750 mg (14.5mg/kg) IV every 12 hours * Goal trough level for SST : 10 to 20 mcg/mL based on c/s * Likely will change to PO abx tomorrow, therefore, will not re-order trough at this time * Less than traditional dose and/or extended dosing interval selected due to likelihood of drug accumulation in obese patient/CKD. Piperacillin/tazobactam * Continue 4.5 g IV extended infusion every 8 hours for CrCl greater than 20 mL/min Pharmacy will continue to follow and will adjust dose/frequency as necessary. Thank you.
[2018-09-06] MEDS ORDERED: PROPOFOL IV EMULSION 10 MG/ML 20 ML VIAL IV ONE (15:10)
[2018-09-06] MEDS ORDERED: ROCURONIUM BROMIDE 10 MG/ML 5 ML VIAL ONE (15:10)
[2018-09-06] MEDS ORDERED: LIDOCAINE HCL 2% 2 ML VIAL/AMP(20MG/ML) INFIL ONE (15:10)
[2018-09-06] MEDS ORDERED: ONDANSETRON INJ 2 MG/ML 2 ML VIAL ONE (15:10)
[2018-09-06] MEDS ORDERED: SUCCINYLCHOLINE CHLORIDE 20 MG/ML 10 ML VIAL ONE (15:11)
[2018-09-06] MEDS ORDERED: fentaNYL citrate 100 MCG/2 ML VIAL ONE (15:11)
[2018-09-06] MEDS ORDERED: MIDAZOLAM HCL 1 MG/ML 2ML VIAL ONE (15:11)
[2018-09-06] MEDS ORDERED: BACITRACIN INJ 50,000 UNIT VIAL ONE (15:17)
--- NOTE | 2018-09-06 15:37 | History & Physical Bridge Note ---
Date of Service September 06, 2018 History & Physical Bridge Note I have examined the patient, reviewed the History & Physical and in the interval since the performance of the History & Physical I have noted the following changes of clinical significance: Worsening infection with abscess left elbow and olecranon bursa. Will require incision and drainage of abscess with olecranon bursectomy left.
--- NOTE | 2018-09-06 15:53 | Anesthesiology Consultation ---
Date of Service September 06, 2018 Assessment & Plan (1) Encounter for pre-operative examination: Chart Review Chart Review: Acceptable Risk for Surgery and Patient NOT seen in Pre Admission Testing Consults Requested none History Surgery Operation Date: 09/06/18 11:00 Proposed Procedures p Left Incision and Drainage of Olecranon Bursitis - Monty Marquez DO Height/Weight Height: 5 ft 11 in Weight: 125.4 kg Allergies Allergy/AdvReac Type Severity Reaction Status Date / Time No Known Allergies Allergy Verified 09/04/18 22:04 Medications Home Medications Medication Instructions Recorded Confirmed Last Taken amoxicillin-pot clavulanate 1 tab PO BID 09/04/18 09/04/18 09/04/18 17:00 aspirin 81 mg PO QAM 09/04/18 09/04/18 09/04/18 atorvastatin 40 mg PO QAM 09/04/18 09/04/18 09/04/18 cholecalciferol (vitamin D3) 5,000 unit PO QAM 09/04/18 09/04/18 09/04/18 [Vitamin D3] fenofibrate micronized 134 mg PO QAM 09/04/18 09/04/18 09/04/18 gabapentin 300 mg PO TID 09/04/18 09/04/18 09/04/18 AM DOSE glimepiride 4 mg PO BID 09/04/18 09/04/18 09/04/18 AM DOSE lisinopril-hydrochlorothiazide 1 tab PO QAM 09/04/18 09/04/18 09/04/18 metformin 1,000 mg PO BID 09/04/18 09/04/18 09/04/18 PM DOSE oxycodone-acetaminophen 1 tab PO TID PRN 09/04/18 09/04/18 Unknown pioglitazone 30 mg PO QAM 09/04/18 09/04/18 09/04/18 Active Medications Generic Name Dose Route Start Last Admin Trade Name Freq PRN Reason Stop Dose Admin Acetaminophen 650 mg 09/04/18 23:42 09/05/18 20:51 Tylenol PO 10/04/18 23:41 650 mg Q4H PRN Administration Pain or Fever Aspirin 81 mg 09/05/18 09:00 09/06/18 08:13 Ecotrin Ectab PO 10/05/18 08:59 81 mg QAM ROJELIO Administration Atorvastatin Calcium 40 mg 09/05/18 09:00 09/06/18 08:14 Lipitor PO 10/05/18 08:59 40 mg QAM ROJELIO Administration Gabapentin 300 mg 09/05/18 09:00 09/06/18 13:19 Neurontin PO 10/05/18 08:59 Not Given TID ROJELIO Lisinopril/HCTZ 1 tab 09/05/18 09:00 09/06/18 08:12 Prinzide 20/25mg PO 10/05/18 08:59 1 tab QAM ROJELIO Administration Hydromorphone HCl 0.5 mg 09/04/18 23:42 09/06/18 14:38 Dilaudid IV 09/18/18 23:41 0.5 mg Q3H PRN Administration Pain Sodium Chloride 1,000 mls @ 150 mls/hr 09/04/18 23:42 09/06/18 14:56 Nss 1000ml IV 10/04/18 23:41 0 mls/hr .Q6H40M ROJELIO Infusion Piperacillin Sod/Tazobactam 120 mls @ 30 mls/hr 09/05/18 02:00 09/06/18 15:38 Sod 4.5 gm/ Dextrose IV 09/15/18 01:59 Infused Q8H ROJELIO Infusion Protocol Vancomycin HCl 1,750 mg/ 535 mls @ 200 mls/hr 09/05/18 11:00 09/06/18 14:56 Sodium Chloride IV 09/15/18 10:59 Infused Q12H ROJELIO Infusion Insulin Aspart 0 units 09/05/18 07:30 09/06/18 12:16 Novolog Flexpen SC 10/05/18 07:29 2 units ACHS ROJELIO Administration Insulin Glargine 10 units 09/04/18 22:45 09/06/18 08:23 Lantus Solostar Pen SC 10/04/18 22:44 10 units BID ROJELIO Administration Miscellaneous 1 ea 09/05/18 00:00 09/06/18 13:19 Order Awaiting Action N/A 10/05/18 00:00 Not Given QS ROJELIO Oxycodone/Acetaminophen 1 tab 09/05/18 17:35 09/06/18 08:11 Percocet 5mg/325mg PO 09/18/18 23:41 1 tab Q4H PRN Administration Pain Vitamin D 5,000 units 09/05/18 09:00 09/06/18 08:13 Vitamin D3 PO 10/05/18 08:59 5,000 units QAM ROJELIO Administration NPO Date Last Intake of Fluids: 09/06/18 Time Last Intake of Fluids: 08:00 Last Intake of Fluids Comment: sips c meds since then Time Last Intake of Solids: 08:00 Past Medical History Medical History Type 2 diabetes mellitus (Chronic) HTN (hypertension) (Chronic) Social History Smoking Status: Never smoker Hx Alcohol Use: No Hx Substance Use: No Physical Exam Vital Signs Last Vital Signs Temp 37.6 C H 09/06/18 11:15 Pulse 105 H 09/06/18 11:15 Resp 18 09/06/18 11:15 BP 137/77 09/06/18 11:15 Pulse Ox 95 09/06/18 11:15 Testing Laboratory Results 09/06/18 06:41 09/06/18 06:41 PT 10.9 Seconds (9.0-12.0) 09/04/18 20:22 INR 1.1 (0.9-1.1) 09/04/18 20:22 APTT 29.8 Seconds (21.0-31.0) 09/04/18 20:22 Hemoglobin A1c 13.5 % (4.5-5.6) H 09/05/18 05:27 Urine Color Yellow 09/05/18 11:16 Urine Appearance Clear (Clear) 09/05/18 11:16 Urine pH 5.0 (4.5-7.5) 09/05/18 11:16 Ur Specific [place] 1.030 (1.000-1.030) 09/05/18 11:16 Urine Protein Trace (Negative) H 09/05/18 11:16 Urine Glucose (UA) 3+ (Negative) H 09/05/18 11:16 Urine Ketones Negative (Negative) 09/05/18 11:16 Urine Nitrite Negative (Negative) 09/05/18 11:16 Ur Leukocyte Esterase Trace (Negative) H 09/05/18 11:16 Urine WBC (Auto) 10-30 /hpf (0-5) H 09/05/18 11:16 Urine RBC (Auto) 0-4 /hpf (0-4) 09/05/18 11:16 U Hyaline Cast (Auto) 1-5 /lpf (0-5) 09/05/18 11:16 U Epithel Cells (Auto) >30 /lpf (0-5) H 09/05/18 11:16 Urine Bacteria (Auto) Negative (Negative) 09/05/18 11:16 09/05/18 11:16 Urine Culture - Preliminary Urine,Clean Catch Yeast 09/04/18 20:22 Aerobic Blood Culture - Preliminary Blood No growth in Aerobic bottle after 24 hours. Anaerobic Blood Culture - Preliminary No growth in Anaerobic bottle after 24 hours. 09/04/18 20:45 Aerobic Blood Culture - Preliminary Blood No growth in Aerobic bottle after 24 hours. Anaerobic Blood Culture - Preliminary No growth in Anaerobic bottle after 24 hours. 09/06/18 09/06/18 09/06/18 15:18 11:37 07:40 POC Glucose 208 H 219 H 203 H Electrocardiogram Date: 09/06/18 Findings: + ST @ Nonspecific T wave abnormality
[2018-09-06] MEDS ORDERED: CEFAZOLIN 250 MG/ML 1 GM VIAL ONE ×2 (16:29)
[2018-09-06] MEDS ORDERED: CEFAZOLIN 3000MG 72.5 ML IV ONE (16:32)
--- NOTE | 2018-09-06 17:25 | Post Operative Brief Note ---
Immediate Post Op Note v1 Date of Surgery September 06, 2018 Pre & Post Diagnosis Operation Date: 09/06/18 11:00 Pre-Op Diagnosis: LEFT ELBOW ABSCESS, SEPTIC LEFT OLECRANON BURSITIS, ELBOW INFECTION Post-Op Diagnosis: LEFT ELBOW ABSCESS, SEPTIC LEFT OLECRANON BURSITIS, ELBOW INFECTION Procedure Operation Date: 09/06/18 11:00 Actual Procedures p Left Incision and Drainage of elbow abscess. S left elbow olecranon bursectomy (Left) - Monty Marquez DO Surgeon Monty Marquez DO Production Trainer None Estimated Blood Loss 5 Findings Consistent with Post-Op Diagnosis Specimens Aerobic, anaerobic, Gram stain specimen left elbow Drains Hemovac Drain (10fr.) Anesthesia Type General Complications none Disposition Accompanied Patient To Recovery: Yes Disposition: Recovery Room
[2018-09-06] MEDS ORDERED: GLYCOPYRROLATE 0.2 MG/ML VIAL ONE (17:27)
[2018-09-06] MEDS ORDERED: NEOSTIGMINE METHYLSULFATE 5 MG/5 ML SYR ONE (17:27)
[2018-09-06] MEDS ORDERED: ATROPINE SULFATE 0.1 MG/ML 10ML SYR IV PRN (17:30)
[2018-09-06] MEDS ORDERED: ACETAMINOPHEN 1,000 MG/100 ML VIAL IV ONE (17:30)
[2018-09-06] MEDS ORDERED: fentaNYL citrate 100 MCG/2 ML VIAL IV PRN (17:30)
[2018-09-06] MEDS ORDERED: ONDANSETRON INJ 2 MG/ML 2 ML VIAL IV PRN (17:30)
[2018-09-06] MEDS ORDERED: ePHEDrine sulfate 50 MG/ML AMP IV PRN (17:30)
[2018-09-06] MEDS ORDERED: ACETAMINOPHEN 1000 MG/100 ML IV IV ONE (17:34)
[2018-09-06] MEDS ORDERED: MAGNESIUM HYDROXIDE SUSP 30 ML UDC PO PRN (18:22)
[2018-09-06] MEDS ORDERED: NALOXONE HCL 0.4 MG/1 ML VIAL/CARP IV PRN (18:22)
[2018-09-06] MEDS ORDERED: BISACODYL 10 MG SUPP PR PRN (18:22)
--- NOTE | 2018-09-06 19:26 | Anesthesiology Progress Note ---
Date of Service September 06, 2018 Anesthesia Post Procedure Vital Signs Vital Signs: Temp Pulse Pulse Resp BP Pulse Ox 09/06/18 18:32 96 H 18 121/68 95 09/06/18 18:00 38 C H 93 H 19 115/64 96 09/06/18 17:50 98 H 19 99/69 L 96 09/06/18 17:40 95 H 21 120/64 98 09/06/18 17:30 95 H 26 H 138/63 97 09/06/18 17:20 37.9 C H 107 H 24 127/88 96 09/06/18 11:15 37.6 C H 105 H 18 137/77 95 09/06/18 07:15 37.3 C 99 H 20 101/70 90 09/06/18 04:00 37.0 C 94 H 20 105/67 92 09/06/18 00:00 100 H 09/05/18 23:14 37.6 C H 100 H 18 114/64 93 09/05/18 19:28 38.3 C H 99 H 18 105/60 93 Pain Intensity Left Elbow: Pain Intensity: 0 Transfer of Care Handoff Completed per policy Notes Mental Status: alert / awake / arousable and participated in evaluation Patient Amnestic to Procedure: Yes Nausea / Vomiting: adequately controlled Pain: adequately controlled Airway Patency, RR, SpO2: stable & adequate BP & HR: stable & adequate Hydration State: stable & adequate Anesthetic Complications: no major complications apparent and Pt Satisfied with anesthetic care
[2018-09-06] MEDS: DOCUSATE SODIUM 100 MG CAP PO SCH (20:48)
[2018-09-07] MEDS: FENOFIBRATE~ORDER AWAITING ACTION SCH ×3 (00:17→15:05)
--- NOTE | 2018-09-07 01:06 | Operative Report ---
DATE OF OPERATION: 09/06/2018 PREOPERATIVE DIAGNOSES: 1. Left elbow abscess. 2. Septic olecranon bursitis. POSTOPERATIVE DIAGNOSES: 1. Left elbow abscess. 2. Septic olecranon bursitis. PROCEDURE PERFORMED: 1. Left elbow incision and drainage abscess. 2. Left elbow olecranon bursectomy. SURGEON: Monty Marquez DO. VERMIN EXTERMINATOR: None. ANESTHESIA: General. SPECIMENS: Aerobic, anaerobic, Gram stain, left elbow. DRAINS: Hemovac x1. COMPLICATIONS: None. BLOOD LOSS: 5 mL. PERTINENT HISTORY: This is a 58-year-old gentleman who had insidious onset left elbow pain, swelling, and redness. He was seen at [facility], admitted to the medical service, placed on IV antibiotics, failed to have improvement with evidence of fluctuance and abscess collection of the left elbow. The patient was scheduled for surgery as indicated. All potential risks, benefits, complications, alternatives, rehab, potential for incomplete relief of symptoms, need for surgery, DVT, PE, , persistent pain, swelling, scarring, weakness, neurovascular injury, wound complications were discussed with the patient. The patient decided to proceed with the procedure as indicated. PROCEDURE: The patient was taken to the operative suite, placed supine on the operating room table. I reviewed the consent and identification of proper operative site, the patient was anesthetized, LMA was placed. Tourniquet was placed high in left upper extremity over cast padding. Left upper extremity was then sterilely prepped in usual fashion, elevated and tourniquet inflated to 250 mmHg. There was no exsanguination due to the nature of the infection. Next, a 15 blade scalpel was used to make a curvilinear incision centered over the left elbow. Incision was deepened through subcutaneous tissue with a 15 blade scalpel. Next, careful dissection was performed with Metzenbaum scissors down to the level of the olecranon bursa. There was noted to be an abscess, pocket adjacent to the olecranon bursa, but separate too. This abscess pocket was then entered. There was noted to be purulent milky colored fluid which was then cultured, aerobic, anaerobic and Gram stain, sent off as evaluation. The olecranon bursa was then sharply excised with 15 blade scalpel and careful dissection with Metzenbaum scissors. The bursa was then removed with a rongeur and then sent for pathological specimen. Next, a curette was then used to curettage the local soft tissue and fascia to ensure there was no residual contaminated or necrotic tissue. After this was completed, pulsatile lavage with 6 liters of sterile normal saline with bacitracin was then used to irrigate and lavage the incision site until clear. Next, top gloves and top sheet were changed and a 10-Polish single lumen Hemovac drain was placed into the deep soft tissue of the elbow. There was no evidence of any deep bony involvement. The fascia appeared grossly intact. No obvious skin defects. The skin was then closed using interrupted 3-0 nylon sutures. Next, a sterile compressive dressing was applied overwrapped with Gilberto wrap. Tourniquet was released. The patient was awakened and taken to recovery in stable condition. I attest to the content of the Intraoperative Record and any orders documented therein. Any exception s are noted below.
[2018-09-07] MEDS: PIPERACILLIN/TAZOBACTAM 4.5 GM in DEXTROSE 5% 100 ML IV SCH ×3 (02:01→17:52)
[2018-09-07] MEDS: SODIUM CHLORIDE 0.9% 1000ML 1,000 ML IV SCH ×4 (04:44→21:18)
[2018-09-07] MEDS: ACETAMINOPHEN 325 MG TAB PO PRN (05:31)
[2018-09-07 05:47] LABS: Hematocrit (blood only) 27.4 % (42-52); Hemoglobin 9.1 g/dL (14.0-18.0); Mean Corpuscular Hgb Conc 33.2 g/dL (32-36); Mean Platelet Volume 8.8 fL (7.4-10.4); Platelet Count 262 K/uL (130-400); RDW Coefficient of Variation 13.6 % (11.5-14.5); RDW Standard Deviation 41.4 fL (36.4-46.3); Red Blood Count 3.34 M/uL (4.7-6.1); White Blood Count 10.15 K/uL (4.8-10.8)
[2018-09-07 06:16] LABS: BUN Creatinine Ratio 14.1 (10-20); Calcium 8.1 mg/dl (8.5-10.1); Creatinine Clr Calc Pharmacy 77.8 ml/min; Est GFR (African American) 63.7; Potassium 3.9 mmol/L (3.5-5.1)
--- NOTE | 2018-09-07 07:14 | Hospitalist Progress Note ---
Date of Service September 07, 2018 Assessment & Plan (1) Left arm cellulitis: (2) Olecranon bursitis of left elbow: (3) Hyperglycemia: (4) Type 2 diabetes mellitus: (5) HTN (hypertension): Continue Zosyn and Vanco, IVFs, ortho took him to the OR on 09/06 for an I&D, Leukocytosis has resolved, still febrile Labs checked Resume Post Op Care per Surgery Protocol Transition from IV to PO Pain control DVT Prophylaxis Monitor Daily Labs Plan to DC when cleared by Ortho on Keflex and Doxy if fever gone ROS-No Headache, No Visual Changes, No Nausea, No Vomiting, +Fever, +Chills, No Neck Pain or Stiffness, No Chest Pain, No Palpitations, No SOB, No ALAMO, No Cough, No Sputum, No Wheezing, No Abdominal Pain, No Diarrhea, No Hematemesis, No Hemoptysis, No Unexpected Weight Loss, No Flank pain, No Melena, No Hematochezia, No Frequency, No Urgency, No Burning, No Hematuria, No Rashes, No Diaphoresis. Appetite is Normal, Elbow feels much better Physical Exam Gen-AAO x 3, NAD, Still Febrile Head-NCAT, EOMI, PERRLA, Anicteric Sclera, No Posterior Pharyngeal Erythema Neck-Supple, No JVD, No Thyromegaly, No Masses, No LAD, No Bruits Lungs-Clear to Auscultation Bilaterally, No Rales, No Rhonchi, No Wheezing, No Crepitus Chest-No S4, +S1, +S2, No S3, No Murmurs, No Rubs, No Gallops, No Ectopy Abdomen-Soft, Bowel Sounds Present, Non Tender, Non Distended, No Hepatomegaly, No Splenomegaly, No Palpable Masses, No Rebound, No Rigidity, No Guarding Musculoskeletal-Full Range of Motion Bilaterally, No CVAT Extremities-L elbow Dressed and viji wrapped Nuero-Cranial Nerves II-XII grossly intact, Motor WNL, DTRs WNL, Strength WNL, Non Focal Psych-Normal Mood Results & Data Vital Signs (Past 12 Hours) Vital Signs Temp Pulse Pulse Resp BP Pulse Ox 09/07/18 04:00 37.7 C H 97 H 23 140/84 90 09/07/18 00:39 87 09/06/18 23:08 37.0 C 90 20 134/75 100
[2018-09-07] MEDS: HYDROmorphone INJ 0.5 MG/0.5 ML SYR IV PRN ×2 (07:59→21:25)
[2018-09-07] MEDS: GABAPENTIN 300 MG CAP PO SCH ×3 (08:02→21:27)
[2018-09-07] MEDS: MULTIVITAMIN TAB PO SCH (08:02)
[2018-09-07] MEDS: ASPIRIN 81 MG ECTAB PO SCH (08:02)
[2018-09-07] MEDS: CHOLECALCIFEROL 1,000 UNITS TAB PO SCH (08:02)
[2018-09-07] MEDS: ATORVASTATIN 40 MG TAB PO SCH (08:03)
[2018-09-07] MEDS: DOCUSATE SODIUM 100 MG CAP PO SCH ×2 (08:03→21:25)
[2018-09-07] MEDS: INSULIN ASPART 100 UNITS/ML 3 ML PEN SC SCH ×4 (08:04→21:21)
[2018-09-07] MEDS: INSULIN GLARGINE SOLOSTAR 100 UNITS/ML 3 ML PEN SC SCH ×2 (08:06→21:22)
[2018-09-07] MEDS: LISINOPRIL/HCTZ 20/25MG 1 TAB PO SCH (08:33)
[2018-09-07] MEDS: OXYCODONE HCL IR 5 MG TAB (IMMEDIATE RELEASE) PO PRN (08:34)
[2018-09-07] MEDS: METOPROLOL TARTRATE 25 MG TAB PO SCH ×2 (09:22→21:26)
--- NOTE | 2018-09-07 10:15 | Orthopedic Progress Note ---
Date of Service September 07, 2018 Assessment & Plan (1) Olecranon bursitis of left elbow: POD #1 s/p Left Incision and Drainage of Olecranon Bursitis Dressing changed today. The hemovac fell out last night. Will change the dressing tomorrow. Continue IV antibiotics and await cultures/sensitivities. D/C planning--uncertain. Subjective Left elbow pain is controlled. Feeling better with ice on the elbow. No complaints today. Physical Exam Constitutional: WD/WN, vitals as above Musculoskeletal: Extremities: + elbow/forearm abnormality Left (incision well approximated. Mild bloody drainage on dressing. Minimal erythema. No streaking. NV intact LUE.) Psychiatric: A+Ox3, euthymic affect Results & Data Vital Signs (Past 12 Hours) Vital Signs Temp Pulse Pulse Resp BP Pulse Ox 09/07/18 08:13 36.9 C 86 20 106/53 L 93 09/07/18 07:13 91 H 09/07/18 04:00 37.7 C H 97 H 23 140/84 90 09/07/18 00:39 87 09/06/18 23:08 37.0 C 90 20 134/75 100
--- NOTE | 2018-09-07 12:12 | Anesthesiology Progress Note ---
Date of Service September 07, 2018 Anesthesia Post Procedure Vital Signs Vital Signs: Temp Pulse Pulse Resp BP Pulse Ox 09/07/18 08:13 36.9 C 86 20 106/53 L 93 09/07/18 07:13 91 H 09/07/18 04:00 37.7 C H 97 H 23 140/84 90 09/07/18 00:39 87 09/06/18 23:08 37.0 C 90 20 134/75 100 09/06/18 18:32 96 H 18 121/68 95 09/06/18 18:00 38 C H 93 H 19 115/64 96 09/06/18 17:50 98 H 19 99/69 L 96 09/06/18 17:40 95 H 21 120/64 98 09/06/18 17:30 95 H 26 H 138/63 97 09/06/18 17:20 37.9 C H 107 H 24 127/88 96 Pain Intensity Left Elbow: Pain Intensity: 5 Notes Mental Status: alert / awake / arousable and participated in evaluation Patient Amnestic to Procedure: Yes Nausea / Vomiting: see Notes below Pain: adequately controlled Airway Patency, RR, SpO2: stable & adequate BP & HR: stable & adequate Hydration State: stable & adequate Anesthetic Complications: no major complications apparent and Pt Satisfied with anesthetic care
[2018-09-07] MEDS: VANCOMYCIN HCL 1,750 MG in SODIUM CHLORIDE 0.9% 500 ML IV SCH ×2 (12:56→22:33)
--- NOTE | 2018-09-07 14:53 | Consultation Report ---
DATE OF CONSULTATION: 09/07/2018 INPATIENT CARDIOLOGY CONSULTATION CONSULTATION REQUESTED BY: Dr. Conteh. REASON FOR CONSULTATION: Short salvos of atrial fibrillation. HISTORY OF PRESENT ILLNESS: Mr. Holloway is a very pleasant 58-year-old gentleman who does not normally follow with cardiology. He presented to [facility] on 09/04/2018 with complaints of elbow pain and swelling after a scratch. He was found to have cellulitis and ultimately underwent left elbow incision and drainage of an abscess with Dr. Marquez on 09/06/2018. Early in the a.m. of 09/07/2018, patient had short salvos of atrial fibrillation that were asymptomatic and each time he spontaneously converted to normal sinus rhythm on his own. Clinically, he states that at that time, he was having trouble getting out of bed and had to urinate, but did not feel his heart racing. Currently, he is seated in a chair with his at bedside and states that he feels great. He denies any chest pain, shortness of breath, palpitations, lightheadedness, dizziness, or syncope. He states his elbow was improving nicely and overall he is feeling well. PAST SURGICAL HISTORY: Postop day #1 status post elbow incision and drainage. MEDICAL ILLNESSES: 1. Metabolic syndrome. 2. Diabetes. 3. Hypertriglyceridemia. 4. Dyslipidemia. 5. Hypertension. FAMILY HISTORY: Noncontributory. SOCIAL HISTORY: Denies any alcohol, tobacco or recreational drug use. He is and lives at home with his . REVIEW OF SYSTEMS: As per HPI. All other review of systems are reviewed and negative at this time. ALLERGIES: CEPHALEXIN. MEDICATIONS AN OUTPATIENT: 1. Atorvastatin 40 mg daily. 2. Lisinopril/hydrochlorothiazide 20/25 mg daily. 3. Actos. 4. Metformin. 5. Amaryl. 6. Fenofibrate. 7. Neurontin. 8. Percocet p.r.n. PHYSICAL EXAMINATION: VITAL SIGNS: Temperature 37.3, pulse 91, respiratory rate 12, blood pressure 124/76. GENERAL: Awake, alert, oriented x3, in no acute distress. HEENT: Normocephalic, atraumatic. Pupils equal, round and react to light and accommodation. Extraocular muscles intact. Anicteric sclerae. Moist mucous membranes. NECK: No JVD, no bruit. CARDIOVASCULAR: Regular. Positive S4. Normal S1 and S2. No S3. No murmurs, rubs or gallops. PULMONARY: Clear to auscultation bilaterally. No rales, rhonchi, or wheezing. ABDOMEN: Bowel sounds x4, soft. No rebound, guarding, tenderness. No organomegaly. EXTREMITIES: No clubbing, cyanosis or edema. +2 pedal pulses bilaterally. Left elbow is in a sling. SKIN: Warm and dry. TEST RESULTS: Review of telemetry monitoring does show short persistent runs of atrial fibrillation with spontaneous conversion to normal sinus rhythm. IMPRESSION: 1. Short runs of atrial fibrillation in the postoperative setting. 2. Postoperative day 1 from left elbow abscess incision and drainage. 3. Hypertension. 4. Diabetes. 5. Dyslipidemia. RECOMMENDATIONS: It was my pleasure to see Mr. Holloway in consultation today. From a cardiac standpoint, the pathophysiology and treatment options for atrial fibrillation were discussed with the patient and his . He was counseled this was most likely secondary to the physical stress of recovering from his operation. At this point, he has already been started on metoprolol tartrate and I will change him to metoprolol succinate in the a.m. for suppression. He has also been started on aspirin, which should be continued and we can have the patient followup in 1 month as an outpatient with me, at which time a Zio patch monitor will be placed for 1 week. Otherwise, we will check a resting echocardiogram at this time, but no other changes will be made.
[2018-09-07] MEDS ORDERED: INSULIN ASPART 100 UNITS/ML 3 ML PEN SC STA (20:59)
[2018-09-08] MEDS: FENOFIBRATE~ORDER AWAITING ACTION SCH ×2 (00:27→08:11)
[2018-09-08] MEDS: PIPERACILLIN/TAZOBACTAM 4.5 GM in DEXTROSE 5% 100 ML IV SCH ×2 (01:28→08:19)
[2018-09-08] MEDS: SODIUM CHLORIDE 0.9% 1000ML 1,000 ML IV SCH ×2 (05:18→08:09)
[2018-09-08 06:41] LABS: BUN Creatinine Ratio 15.1 (10-20); Calcium 8.1 mg/dl (8.5-10.1); Creatinine Clr Calc Pharmacy 91.4 ml/min; Est GFR (Non-African American) 65.6; Potassium 3.7 mmol/L (3.5-5.1)
[2018-09-08] MEDS: OXYCODONE HCL IR 5 MG TAB (IMMEDIATE RELEASE) PO PRN (07:30)
[2018-09-08] MEDS: INSULIN ASPART 100 UNITS/ML 3 ML PEN SC SCH ×2 (08:11→12:09)
[2018-09-08] MEDS: GABAPENTIN 300 MG CAP PO SCH (08:12)
[2018-09-08] MEDS: CHOLECALCIFEROL 1,000 UNITS TAB PO SCH (08:12)
[2018-09-08] MEDS: DOCUSATE SODIUM 100 MG CAP PO SCH (08:12)
[2018-09-08] MEDS: MULTIVITAMIN TAB PO SCH (08:12)
[2018-09-08] MEDS: ASPIRIN 81 MG ECTAB PO SCH (08:13)
[2018-09-08] MEDS: ATORVASTATIN 40 MG TAB PO SCH (08:13)
[2018-09-08] MEDS: LISINOPRIL/HCTZ 20/25MG 1 TAB PO SCH (08:13)
[2018-09-08] MEDS: INSULIN GLARGINE SOLOSTAR 100 UNITS/ML 3 ML PEN SC SCH (08:14)
[2018-09-08] MEDS ORDERED: METOPROLOL SUCC 25MG EXT REL TAB PO SCH (09:00)
--- NOTE | 2018-09-08 09:24 | Discharge Summary ---
Date of Service September 08, 2018 Admission HPI Per Admitting Provider 58-year-old male with past medical history significant for diabetes, hypertension, high triglycerides, metabolic syndrome, seasonal allergies, vitamin D deficiency, lumbosacral disk degeneration, presents with left elbow infection. The patient on Sunday tripped over and fell on his left elbow. There was some minor scratch, for which he put hydrogen peroxide, but yesterday it started to swell and have painful movements. So he went to family doctor and prescribed Augmentin, but last night he was having fevers, he was not getting better. He has had difficulty moving his left elbow. So he came here and he has swelling and erythema around left elbow extending into the arm and forearm. He had a spiking temperature, mild tachycardia, elevation of white count, and was treated with Zosyn in the ER. Currently resting comfortably, hemodynamically stable except for swelling of the left elbow and pain denies any other complaint. Denies any headache, no dizziness, no blurred vision, no earache, no runny nose, no sore throat, no difficulty swallowing. Appetite is okay. No chest pain, no shortness of breath, no cough. Was nauseous earlier, but that has improved now. No abdominal pain. Normal bowel and bladder movements. No blood in the stool, no black stools, no hematuria, no burning micturition. No swelling of the legs. Otherwise active. Admission Exam Per Admitting Provider GENERAL: The patient is obese, not in acute distress. VITAL SIGNS: Temperature 38.4, pulse 109, respiratory rate 18, blood pressure 145/97, oxygen 97% room air. HEENT: No pallor, no icterus. Pupils equal, round, reactive to light. NECK: No JVD, no neck masses, no carotid bruit. CARDIOVASCULAR: S1, S2 heard, regular rate and rhythm, no murmur, no gallop. RESPIRATORY SYSTEM: Normal AP diameter. No accessory muscle use. No wheezing, no crackles. ABDOMEN: Soft, bowel sounds present. Nontender. No distention. CENTRAL NERVOUS SYSTEM: Cranial nerves II-XII grossly intact. Nonfocal. EXTREMITIES: Erythema involving Right elbow and right dorsal aspect of forearm and arm. Warm and tender on palpation, painful left elbow movements. Principal Diagnosis Sepsis Staph Cellulitis and Bursitis L Elbow Obesity BMI 40 Hyperglycemia.DM II Back Pain Sciatica Discharge Exam ROS-No Headache, No Visual Changes, No Nausea, No Vomiting, +Fever, +Chills, No Neck Pain or Stiffness, No Chest Pain, No Palpitations, No SOB, No ALAMO, No Cough, No Sputum, No Wheezing, No Abdominal Pain, No Diarrhea, No Hematemesis, No Hemoptysis, No Unexpected Weight Loss, No Flank pain, No Melena, No Hematochezia, No Frequency, No Urgency, No Burning, No Hematuria, No Rashes, No Diaphoresis. Appetite is Normal, Elbow feels much better Physical Exam Gen-AAO x 3, NAD, Still Febrile Head-NCAT, EOMI, PERRLA, Anicteric Sclera, No Posterior Pharyngeal Erythema Neck-Supple, No JVD, No Thyromegaly, No Masses, No LAD, No Bruits Lungs-Clear to Auscultation Bilaterally, No Rales, No Rhonchi, No Wheezing, No Crepitus Chest-No S4, +S1, +S2, No S3, No Murmurs, No Rubs, No Gallops, No Ectopy Abdomen-Soft, Bowel Sounds Present, Non Tender, Non Distended, No Hepatomegaly, No Splenomegaly, No Palpable Masses, No Rebound, No Rigidity, No Guarding Musculoskeletal-Full Range of Motion Bilaterally, No CVAT Extremities-L elbow Dressed and viji wrapped Nuero-Cranial Nerves II-XII grossly intact, Motor WNL, DTRs WNL, Strength WNL, Non Focal Psych-Normal Mood Discharge Data Allergies Allergy/AdvReac Type Severity Reaction Status Date / Time No Known Allergies Allergy Verified 09/04/18 22:04 Consultations 09/04/18 21:24 ED Decision to Admit Stat 09/05/18 08:00 Consult Orthopedic Surgery Routine 09/07/18 08:42 Consult Cardiology Routine Procedures Performed Operation Date: 09/06/18 11:00 Actual Procedures p Left Incision and Drainage of Olecranon Bursitis(Left) - Monty Marquez DO Current Diagnoses Type 2 diabetes mellitus without complications (09/04/18) Essential (primary) hypertension (09/04/18) Cellulitis of left upper limb (09/04/18) Olecranon bursitis, left elbow (09/04/18) Hyperglycemia, unspecified (09/04/18) Encounter for other preprocedural examination (09/04/18) Allergies No Known Allergies Allergy (Verified 09/04/18 22:04) Height/Weight/Isolation Height 5 ft 11 in Weight 129.8 kg Chemistry 09/07/18 09/08/18 05:16 05:28 Sodium 132 L 136 Potassium 3.9 3.7 Chloride 104 107 Carbon Dioxide 21 21 Anion Gap 7.0 8.0 BUN 20 H 18 Creatinine 1.40 D 1.21 Glucose 215 H 206 H Microbiology 09/06/18 Unknown Arm,Left Gram Stain - Final 09/06/18 Unknown Arm,Left Aerobic and Anaerobic Culture - Preliminary Staphylococcus aureus 09/05/18 11:16 Urine,Clean Catch Urine Culture - Final Yeast 09/04/18 20:22 Blood Aerobic Blood Culture - Preliminary No growth in Aerobic bottle after 48 hours. 09/04/18 20:22 Blood Anaerobic Blood Culture - Preliminary No growth in Anaerobic bottle after 48 hours. 09/04/18 20:45 Blood Aerobic Blood Culture - Preliminary No growth in Aerobic bottle after 48 hours. 09/04/18 20:45 Blood Anaerobic Blood Culture - Preliminary No growth in Anaerobic bottle after 48 hours. Hospital Course (1) Left arm cellulitis: (2) Olecranon bursitis of left elbow: (3) Hyperglycemia: (4) Type 2 diabetes mellitus: (5) HTN (hypertension): Clindamycin x 7 days on DC, ortho took him to the OR on 09/06 for an I&D and Bursectomy, Leukocytosis has resolved, still febrile Labs checked Total Time Total Time Spent Total Time Spent (In Minutes): 60 mins Total Time Includes: Examination of the Patient, Discharge Planning, Medication Reconciliation and Communication With Other Providers Discharge Plan Discharge Items Patient Disposition: Home - Self-Care Reason For Visit: LEFT ELBOW INFECTION Discharge Diagnosis: Sepsis Staph Cellulitis and Bursitis L Elbow Obesity BMI 40 Hyperglycemia.DM II Back Pain Sciatica Condition: Good Discharge Goals: Decrease discomfort, Improve disease control and Improve function Activity: As commented below Activity Comment: Non weight bearing L Elbow until seen by Dr Marquez Lifting: Wait until after follow-up appointment Bathing: No limitations and Keep incision dry Sexual Activity: When tolerated Exercise/Sports: None Driving/Machine Use: No limitations Weightbearing: Left weightbearing and Right weightbearing Non-emergency contact: Primary Care Provider and Surgeon Call non-emergency contact if: you have any medication questions, your symptoms worsen, your pain is worsening and your temperature is above 100.5 Follow-up/Referrals: Glynn Eason DO [Physician] - (3-5 days) Monty Marquez DO [Surgeon] - (As directed, Call for instructions) Donnie Resendiz MD [Primary Care Provider] - (Call for first opening) Diet: Carb Consistent or DM2 and Heart Healthy Addtl Provider Instructions: Wound check in ortho office Prescriptions: New acetaminophen [Mapap (acetaminophen)] 325 mg Tablet 650 mg PO Q4H PRN (Reason: fever or pain) Qty: 90 RF: 0 metoprolol succinate 25 mg Tablet Extended Release 24 Hr 25 mg PO QAM Qty: 30 RF: 0 clindamycin HCl 300 mg capsule 300 mg PO Q6H 7 Days Qty: 28 RF: 0 Continued atorvastatin 40 mg tablet 40 mg PO QAM RF: 0 aspirin 81 mg Tablet,Delayed Release (Dr/Ec) 81 mg PO QAM RF: 0 fenofibrate micronized 134 mg capsule 134 mg PO QAM RF: 0 metformin 1,000 mg tablet 1,000 mg PO BID RF: 0 glimepiride 4 mg tablet 4 mg PO BID RF: 0 gabapentin 300 mg capsule 300 mg PO TID RF: 0 lisinopril-hydrochlorothiazide 20-25 mg tablet 1 tab PO QAM RF: 0 pioglitazone 30 mg tablet 30 mg PO QAM RF: 0 cholecalciferol (vitamin D3) [Vitamin D3] 5,000 unit Tablet 5,000 unit PO QAM RF: 0 oxycodone-acetaminophen 5-325 mg tablet 1 tab PO TID PRN (Reason: Pain) Qty: 30 RF: 0 Discontinued amoxicillin-pot clavulanate 875-125 mg tablet 1 tab PO BID RF: 0 Stand-Alone Forms: [facility], Work/School Release (Inpt), Opioid Pain Management Discharge Orders: Discharge Order (Routine); Ordered 09/08/18 Ordered By: Padilla Conteh Admission Data Admit Date/Time: 09/04/18 22:37 Attending Provider: Padilla Conteh Admit Provider: Hi Luis Primary Care Provider: Donnie Resendiz Other Providers: Glynn Eason ; Monty Marquez ; Hi Luis Service: Telemetry Medical
[2018-09-08] MEDS ORDERED: VANCOMYCIN TROUGH ONE (10:30)
--- NOTE | 2018-09-08 11:57 | Orthopedic Progress Note ---
Date of Service September 08, 2018 Assessment & Plan (1) Olecranon bursitis of left elbow: POD #2 s/p Left Incision and Drainage of Olecranon Bursitis Dressing changed today. Plan for d/c today on PO Clindamycin. F/U in 2 weeks for suture removal. Subjective Left elbow pain is controlled. No complaints today. Physical Exam Constitutional: WD/WN, vitals as above Musculoskeletal: Extremities: + elbow/forearm abnormality Left (Well approximated left elbow incision. Minimal erythema. No drainage. Minimal tenderness. ) Psychiatric: A+Ox3, euthymic affect Results & Data Vital Signs (Past 12 Hours) Vital Signs Temp Pulse Pulse Resp BP Pulse Ox 09/08/18 07:34 89 09/08/18 07:23 37.6 C H 90 18 126/78 93 09/08/18 03:13 37.3 C 87 18 106/67 92 09/08/18 00:29 100 H
[2018-09-08] MEDS: VANCOMYCIN HCL 1,750 MG in SODIUM CHLORIDE 0.9% 500 ML IV SCH (12:07)
--- NOTE | 2018-09-08 12:10 | Cardiology Progress Note ---
Date of Service September 08, 2018 Assessment & Plan (1) PAF (paroxysmal atrial fibrillation): no recurrence tolerating metoprolol ok to d/c to home from cardiac standpoint my office will call to arrange 1 week Zio patch monitor and f/u with me in 1 month Subjective Pt seen and examined, with at bedside, states that he feels well. No complaints overnight. Denies cp, sob, palpitations, lightheadedness or dizziness. tele reviewed: sinus rhythm without arrhythmia or recurrence of afib Review of Systems Review of Systems: All systems reviewed & are unremarkable except as noted in HPI & below Physical Exam Physical Exam: General: Awake, alert and oriented x 3. No acute distress. HEENT: Normocephalic, atraumatic. Pupils equal, round and reactive to light and accommodation. Extraocular muscles are intact. Anicteric sclera. Moist mucous membranes. Neck: No JVD. No bruit. Cardiovascular: Regular. Positive S-4. Normal S-1 and S-2. No S-3. No murmurs or rubs. Pulmonary: Clear to auscultation B/L. No rales, rhonchi or wheezing Abdomen: Bowel sounds x 4, soft. No rebound, guarding or tenderness. No organomegaly. Extremities: No clubbing, cyanosis or edema. +2 pedal pulses bilaterally. Skin: Warm and dry. Results & Data Vital Signs (Past 12 Hours) Vital Signs Temp Pulse Pulse Resp BP Pulse Ox 09/08/18 07:34 89 09/08/18 07:23 37.6 C H 90 18 126/78 93 09/08/18 03:13 37.3 C 87 18 106/67 92 09/08/18 00:29 100 H
== END 2018-09-08 12:26 | disposition home or self-care (01) | DRG 854 ==
LOC: ED 20:06 → 2N 22:37

== ENCOUNTER 2023-05-16 05:34 | Observation (INO) ==
--- NOTE | 2023-04-25 10:37 | PAT Medication Instructions ---
Medication Instructions Date of Service April 25, 2023 Home Medications aspirin 81 mg tablet,delayed release 81 mg PO QAM atorvastatin 40 mg tablet 40 mg PO HS cholecalciferol (vitamin D3) 125 mcg (5,000 unit) tablet (Vitamin D3) 5,000 unit PO QAM gabapentin 300 mg capsule 300 mg PO TID PRN Pain glimepiride 4 mg tablet 4 mg PO BID metformin 1,000 mg tablet 1,000 mg PO BID empagliflozin 25 mg tablet (Jardiance) 25 mg PO QAM irbesartan 75 mg tablet 75 mg PO QAM tirzepatide 10 mg/0.5 mL subcutaneous pen injector (Mounjaro) 10 mg subcut WK DO NOT take the morning of surgery cholecalciferol (vitamin D3) 125 mcg (5,000 unit) tablet (Vitamin D3) 5,000 unit PO QAM glimepiride 4 mg tablet 4 mg PO BID metformin 1,000 mg tablet 1,000 mg PO BID irbesartan 75 mg tablet 75 mg PO QAM Take morning of surgery With a small sip of water, OTHERWISE NOTHING TO EAT OR DRINK AFTER MIDNIGHT: aspirin 81 mg tablet,delayed release 81 mg PO QAM (unless surgeon directed otherwise) gabapentin 300 mg capsule 300 mg PO TID PRN Pain (if needed) Take evening before surgery atorvastatin 40 mg tablet 40 mg PO HS gabapentin 300 mg capsule 300 mg PO TID PRN Pain (if needed) glimepiride 4 mg tablet 4 mg PO BID metformin 1,000 mg tablet 1,000 mg PO BID STOP 7 days before surgery tirzepatide 10 mg/0.5 mL subcutaneous pen injector (Mounjaro) 10 mg subcut WK STOP 3 days before surgery empagliflozin 25 mg tablet (Jardiance) 25 mg PO QAM Other Notes If you have any questions please call us at [phone] or [phone] or [phone] or [phone]
--- NOTE | 2023-04-30 10:02 | Anesthesiology Consultation ---
Date of Service April 30, 2023 Assessment & Plan (1) Encounter for pre-operative examination: - check BSG am DOS. - [facility] PCP appointment 05/09/23. Chart Review Chart Review: Pending: Refer to Additional Notes / Consult section and Patient seen in Pre Admission Testing Teaching & Discussion Pre-Anesthesia Teaching/Discussion Notes: Instructed NPO after midnight before surgery, except medications with 15 cc of water. Medication instructions provided according to the PAT guidelines. History Surgery Operation Date: 05/16/23 09:20 Proposed Procedures p Left Total Knee Arthroplasty - Carrillo Yoo MD Height/Weight Height: 5 ft 11 in Weight: 112.4 kg Allergies Allergy/AdvReac Type Severity Reaction Status Date / Time cephalexin Allergy Severe angioedema Verified 04/30/23 10:46 Medications Home Medications Medication Instructions Recorded Confirmed Last Taken aspirin 81 mg tablet,delayed 81 mg PO QAM 09/04/18 04/25/23 09/04/18 release atorvastatin 40 mg tablet 40 mg PO HS 09/04/18 04/25/23 09/04/18 cholecalciferol (vitamin D3) 125 5,000 unit PO QAM 09/04/18 04/25/23 09/04/18 mcg (5,000 unit) tablet (Vitamin D3) gabapentin 300 mg capsule 300 mg PO TID PRN Pain 09/04/18 04/25/23 09/04/18 AM DOSE glimepiride 4 mg tablet 4 mg PO BID 09/04/18 04/25/23 09/04/18 AM DOSE metformin 1,000 mg tablet 1,000 mg PO BID 09/04/18 04/25/23 09/04/18 PM DOSE empagliflozin 25 mg tablet 25 mg PO QAM 04/25/23 04/25/23 Unknown (Jardiance) irbesartan 75 mg tablet 75 mg PO QAM 04/25/23 04/25/23 Unknown tirzepatide 10 mg/0.5 mL 10 mg subcut WK 04/25/23 04/25/23 Unknown subcutaneous pen injector (Raphaeluntimro) Past Medical History Medical History Degenerative disc disease History of anesthesia reaction was very confused, agitated and combative behavior when waking up from elbow surgery History of atrial fibrillation 2021>short time event after elbow surgery, no cards History of kidney stones none recently per pt HTN (hypertension) controlled, stable per pt Hyperlipidemia Type 2 diabetes mellitus NIDDM Patient denies h/o stroke, seizures, heart attack, heart failure, blood clots/DVTs or blood transfusions. Exercise / Class Metabolic Activity II 4-5 Yardwork/Stairs/Walk up hill (denies chest discomfort or shortness of breath with 1 FOS) Past Family History Family History Mother Diabetes Other No family history of adverse response to anesthesia Past Surgical History Surgical History History of arthroscopy right/left knee History of lithotripsy Hx of elbow surgery Left elbow incision and drainage abscess and Left elbow olecranon bursectomy Hx of nasal septoplasty [place] teeth extracted Past Anesthesia History No Family Hx of Anesthesia Complications and Other (was very confused, agitated and combative behavior when waking up from elbow surgery) History of PONV No Hx of PONV and No Hx of Motion Sickness Social History Smoking Status: Never smoker Do You Dip or Chew Tobacco: No Hx Alcohol Use: No substance use type: does not use Review of Systems Patient denies chest pain, shortness of breath, dyspnea on exertion, snoring, witnessed apneas, reflux, fever, chills, cough, wheezing, or palpitations. Physical Exam Vital Signs Vitals BP 127/79 P 91 TEMP 98.5 SP02 97% on RA RESP 17 Physical Patient resting comfortably in chair in no acute distress, alert and oriented, responding appropriately throughout visit Full cervical extension range of motion without pain TMD 3.5 finger breadths Mallampati Score 3 Dentition: several broken teeth; denies loose teeth, caps/crowns, implants or bridges Lungs: normal respiratory effort. Good air movement, clear throughout to auscultation, no adventitious breath sounds Cardiac: regular rate and rhythm, no murmurs noted Carotid arteries: negative bruit bilat Lab Results Anesthesia Preop Results Results Anesthesia Widget: WBC 6.21 K/ul (4.8-10.8) 04/30/23 Hgb 13.3 g/dl (14.0-18.0) L 04/30/23 Hct 40.6 % (42.0-52.0) L 04/30/23 Plt 246 K/uL (130-400) 04/30/23 Na 136 mmol/L (136-145) 04/30/23 K 4.2 mmol/L (3.5-5.1) 04/30/23 Cl 106 mmol/L (98-107) 04/30/23 CO2 21 mmol/L (21-32) 04/30/23 BUN 21 mg/dl (6-23) 04/30/23 Creat 0.82 mg/dl (0.6-1.4) 04/30/23 Glucose Level 123 mg/dl (70-99(Fasting)) H 04/30/23 PT 10.4 Seconds (9.0-12.0) 04/30/23 PTT 31 Seconds (21-31) 04/30/23 INR 0.9 (0.9-1.1) 04/30/23 Urine Color Yellow 04/30/23 Urine Appearance Clear (Clear) 04/30/23 Urine pH 5.0 (4.5-7.5) 04/30/23 Urine Specific [place] 1.026 (1.000-1.030) 04/30/23 Urine Protein 3+ (Negative) H 04/30/23 Urine Glucose (UA) 3+ (Negative) H 04/30/23 Urine Ketones Negative (Negative) 04/30/23 Urine Blood Trace (Negative) H 04/30/23 Urine Nitrite Negative (Negative) 04/30/23 Urine Bilirubin Negative (Negative) 04/30/23 Urine Urobilinogen Negative (Negative) 04/30/23 Urine Leukocyte Esterase Negative (Negative) 04/30/23 Urine WBC (Auto) 1-5 /hpf (0-5) 04/30/23 Urine RBC (Auto) 0-4 /hpf (0-4) 04/30/23 Urine Hyaline Casts (Auto) 0 /lpf (0-5) 04/30/23 Urine Epithelial Cells (Auto) >30 /lpf (0-5) H 04/30/23 Urine Bacteria (Auto) Negative (Negative) 04/30/23 Blood Type O Positive 04/30/23 Antibody Screen NEGATIVE 04/30/23 Testing Electrocardiogram Date: 04/30/23 NSR, rate 91 bpm Nonspecific T wave abnormality Chest X-Ray Date: 04/30/23 No acute process. Echocardiogram Date: 09/08/18 EF 55-60% Mild cLVH Grade II diastolic dysfunction No significant valvular pathology No segmental LV wall motion abnormalities
[~2023-05-16 05:34] MED LIST: ALLERGY Noted to ORDERED Medication SCH; VANCOMYCIN CONSULT ACTIVE PRN
[2023-05-16] MEDS ORDERED: ceFAZolin 2000MG 2,000 MG/15 ML SYR IV SCH (06:00)
[2023-05-16] MEDS: VANCOMYCIN HCL 1,750 MG in SODIUM CHLORIDE 0.9% 500 ML IV SCH ×2 (06:03→21:23)
[2023-05-16] MEDS: LR 60ML/HR IV SCH (06:03)
[2023-05-16] MEDS: LR 500ML BOLUS, THEN 15ML/HR IV SCH (06:03)
--- NOTE | 2023-05-16 06:32 | History & Physical Bridge Note ---
Date of Service May 16, 2023 History & Physical Bridge Note I have examined the patient, reviewed the History & Physical and in the interval since the performance of the History & Physical I have noted the following changes of clinical significance: no changes noted
[2023-05-16] MEDS ORDERED: ROPIVACAINE 0.5% 5 MG/ML 30 ML VIAL ONE (07:19)
[2023-05-16] MEDS ORDERED: fentaNYL citrate PF 100 MCG/2 ML VIAL ONE (07:28)
[2023-05-16] MEDS ORDERED: MIDAZOLAM HCL 1 MG/ML 2ML VIAL ONE (07:28)
[2023-05-16] MEDS ORDERED: LIDOCAINE 2% 2 ML VIAL/AMP(20MG/ML) INFIL ONE ×2 (07:53)
[2023-05-16] MEDS ORDERED: PROPOFOL IV EMULSION 10 MG/ML 20 ML VIAL IV ONE ×4 (07:53→10:23)
[2023-05-16] MEDS: TRANEXAMIC ACID 1,000 MG **IV Pre-op IV SCH (08:38)
[2023-05-16] MEDS ORDERED: CLINDAMYCIN/D5W 600 MG/50 ML BAG IV ONE (09:16)
[2023-05-16] MEDS: CLINDAMYCIN 600 MG/D5W 50 ML BAG IV ONE (09:20)
[2023-05-16] MEDS: ORTHO JOINT ANESTHETIC ONE (09:42)
[2023-05-16] MEDS: TRANEXAMIC ACID 1,000 MG **IV Intra-op IV SCH (10:14)
[2023-05-16] MEDS: ROPIVACAINE 0.5% HCL/PF 246 MG, Ketorolac (*for OR use only*) 30 MG, EPINEPHrine 30MG/3... INFIL SCH (10:14)
[2023-05-16] MEDS ORDERED: ONDANSETRON INJ 2 MG/ML 2 ML VIAL ONE (10:23)
--- NOTE | 2023-05-16 10:45 | Post Operative Brief Note ---
Immediate Post Op Note v1 Date of Surgery May 16, 2023 Pre & Post Diagnosis Operation Date: 05/16/23 08:50 Pre-Op Diagnosis: Left Knee Degenerative Joint Disease Post-Op Diagnosis: Left Knee Degenerative Joint Disease I identified the patient and participated in the time-out.: Yes Procedure Operation Date: 05/16/23 08:50 Actual Procedures p Left Total Knee Arthroplasty(Left) - aCrrillo Yoo MD Surgeon Carrillo Yoo MD Reactor Technician YOLI/Michelet Estimated Blood Loss 75 Findings Consistent with Post-Op Diagnosis Severe medial disease with flexion varus deformity Fluids 1500 cc Complications None
--- NOTE | 2023-05-16 10:48 | Operative Report ---
Post Operative Report Pre & Post Diagnosis Operation Date: 05/16/23 08:50 Pre-Op Diagnosis: Left Knee Degenerative Joint Disease Post-Op Diagnosis: Left Knee Degenerative Joint Disease I identified the patient and participated in the time-out.: Yes Procedure Operation Date: 05/16/23 08:50 Actual Procedures p Left Total Knee Arthroplasty(Left) - Carrillo Yoo MD Surgeon Carrillo Yoo MD Production Associate YOLI/Michelet Estimated Blood Loss 75 Findings Consistent with Post-Op Diagnosis Severe medial disease with flexion varus deformity Fluids 1500 cc Specimens Bone pathology Drains None Complications None Indications Severe pain failed conservative management Description of Procedure After the patient was appropriate notified site verified consent verified antibiotics confirmed as being given with vancomycin he was prepped and draped use routine fashion with left lower extremity prepped and draped tourniquet plated to 275 mmHg after exsanguination limb with Esmarch bandage for total of 58 minutes. Midline approach was utilized parapatellar arthrotomy performed synovectomy completed osteophytes resected. Distal femur entered cruciates resected tibia subluxated menisci resected. Distal femur resected 11 mm proximal tibia 4 mm the extension gap was excellent. The femur was sized to a 7 appropriate cutting block applied anterior posterior condylar and chamfer cuts made. The flexion gap was checked and was excellent the Ortho mix was injected posteriorly. Box cut was then made a size 7 fit well. The femur was once completed the tibia was then addressed next. It was then broached and reamed to a size 7 rotating platform tray. 7 mm spacer gave excellent midrange stability extension to 0 and flexion 120. The patella tracked well. The patella was resected leaving roughly 15 mm and a 41 button placed. It tracked well. Ortho mix was then injected all about the knee all trial implants were removed the knee was irrigated with Pulsavac soaked in Betadine for 2 minutes and then permanent cemented into position tibia femur patella in that order a 12 minutes the tourniquet deflated at 14 minutes my knee was then inspected there was no cement move required the trial spacer was removed everything was irrigated 1 final time with Betadine and Pulsavac and then the permanent liner seated knee reduced and closed at 40 degrees of flexion using #2 Vicryl 2-0 Vicryl and standstill clips appropriate dressing applied patient transferred recovery in satisfactory condition he tolerated the procedure well. EBL was 75 cc crystalloid per anesthesia pathology pending on bone DVT prophylaxis start tomorrow. Summary of implants DePuy J&J ATT UNE total knee system size 7 femur left 7 rotating platform tray 41 patella 7 x 7 rotating platform posterior cruciate substituting insert 2 bags of Palacos G cement. I attest to the content of the Intraoperative Record and any orders documented therein. Any exceptions are noted below.
--- NOTE | 2023-05-16 10:52 | Orthopedic Progress Note ---
Date of Service May 16, 2023 Orthopedic Progress Note Postop status post left total knee replacement contacted family of days where he is doing well denies chest pain shortness of breath fever chills nausea vomiting headache. Vital signs are stable he is afebrile. Neurovascular check limited by spinal x-rays pending. Wound dressing clean dry and intact. Continue with post care pathway.
--- NOTE | 2023-05-16 10:52 | Discharge Summary ---
Date of Service May 17, 2023 Admission HPI Per Admitting Provider Left knee pain chronic failed conservative management Principal Diagnosis Osteoarthritis left knee flexion varus deformity Discharge Data Allergies Allergy/AdvReac Type Severity Reaction Status Date / Time cephalexin Allergy Severe angioedema Verified 05/16/23 06:14 Vaccinations None Consultations None Procedures Performed Operation Date: 05/16/23 08:50 Actual Procedures p Left Total Knee Arthroplasty(Left) - Carrillo Yoo MD Ordered Studies 05/16/23 05:00 US - OR guided needle placemen Routine Hospital Course (1) Status post left knee replacement: Continue care pathway Total Time Total Time Spent Total Time Spent (In Minutes): 5 minutes Discharge Plan Discharge Items Reason For Visit: Left Knee Osteoarthritis Discharge Diagnosis: Same Condition on Discharge: Good Activity: Per Instructions section Lifting: Wait until after follow-up appointment Bathing: Keep incision dry Sexual Activity: Wait until after follow-up appointment Exercise/Sports: Wait until after follow-up appointment Non-emergency contact: Surgeon Call non-emergency contact if: your temperature is above 101.5, your wound has increased redness, your wound has increased drainage and your wound pain has increased Follow-up/Referrals: Prasanna Aly PA-C [Physician Building Equipment Operator] - 05/31/23 1:00 pm Ester Villa MD [Primary Care Provider] - Addtl Attending Provider Instructions: New Medicine: * You will likely be taking one or more of these medications: 1. Percocet - Take, as directed, when you need it, every four to six hours to control your pain. 2. Iron Sulfate - Take three times each day for the month after surgery to help you replace the blood lost during surgery. 3. Eliquis - Thins your blood to lessen the chance of forming a blood clot. * The most common side effects of pain medicine and iron are nausea and constipation. If nausea or constipation is too much of a problem or if you have any questions about your new medicines or doses, call [facility] at . We will try to help you manage these issues. "VERY IMPORTANT TO READ AND REVIEW" Blood Clots and Blood Thinning Medicine: * You are given Eliquis during the immediate post-operative period to lessen the risk of blood clots forming in your legs and/or lungs. Eliquis is usually given for 2-4 weeks after surgery. Pain: * The immediate post-operative period after knee replacement surgery is often quite painful. * You are given a prescription for pain medicine. You should take it, as directed, when you need it, especially before physical therapy and before going to bed. Pain that interferes with sleep is very common and can last several months. * You will likely need pain medicine for the first four to six weeks. It will not stop all of the pain. The pain will lessen and as you feel better, you may change to milder pain medicine such as Tylenol. * The most common side effects of pain medicine are nausea and constipation, so don't take more than you need. Physical Therapy: * You will have physical therapy two or three times each week for four to six weeks after your surgery in order to regain your knee range of motion and to retrain your knee to work properly. * It is just as important to make sure you are getting your knee perfectly straight as it is to regain your knee bend. * Taking a pain pill an hour before therapy can help you have a more productive and comfortable therapy session if needed. Home Exercise: * You were shown a series of exercises (heel props, heel slides, etc.) in the hospital. Do these exercises three to four times each day including the exercises you were shown in physical therapy. Walking: * Get up and walk several times each day. For the first four weeks, try not to stand or walk for more than one hour at a time. If you do stand or walk for more than one hour, you will not hurt anything, but your knee and leg will likely swell. * As you feel comfortable, you may change from the walker or crutches to a cane and then to independent walking. SELF CARE INSTRUCTIONS AFTER TOTAL KNEE REPLACEMENT A. You may need to continue a physical therapy program after discharge from the hospital. There are several options available to you. Your doctor will assist you in selecting the best one for you. 1. An out-patient facility 2 to 3 times a week for therapy or home therapy. 2. Continue working on all exercises taught to you in the hospital. Your goals should be to increase bending of your knee to 90 degrees and beyond and to fully straighten your knee. B. You may progress at your own pace from walking with a walker or crutches to a cane; then to no assistive devices. C. Make walking a part of your daily routine. Be up as much as comfortable with rest periods throughout the day. Rest with leg elevation is very important. Use the ice wrap frequently for the first 3-4 weeks. D. There are no restrictions on activities. You may ride in a car, shop, participate in telegraph mechanic and all social activities. E. Wear the long elastic stockings (RAS hose) 20 hours a day for six weeks after surgery. They can be removed several times a day for laundering and for a shower. F. Do not place a pillow behind your knee when resting. A pillow at your ankle is okay. VERY IMPORTANT TO READ AND REVIEW A. Take Eliquis (blood thinning medications) as directed by your doctor. Take as prescribed. B. There are a few signs you need to watch for after you are home. Call [facility] if you notice any of the followin. Increased severe knee pain. Some pain is expected especially when you exercise. 2. Increased swelling in your leg or knee; pain or swelling of the calf muscle in either lower leg. 3. Any fluid drainage from the incision. 4. Shortness of breath or chest pain. C. Please call [facility] at if you have any concerns or questions about your operation or recovery. The doctor or his nurse will return your call promptly. D. You must take antibiotics before dental work, bladder, bowel or other surgery. Call the office to obtain a prescription at least 2 days prior to your appointment. * CALL IF INCREASED PAIN, REDNESS, DRAINAGE OR FEVER GREATER THAT 101. * Sutures should be removed 12-14 days after surgery unless you are on chronic steriods, then it will be 14-18 days after surgery. Call your doctor if: * Temperature above 101 degrees F. * Pain not relieved by pain medicine ordered. * Increased drainage or redness from incision. * Notify your doctor with any questions or concerns. Pending Studies at Discharge: Yes (Bone pathology) Stand-Alone Forms: [facility] Medications and DC Order Prescriptions: New Eliquis 2.5 mg Tablet 2.5 mg PO BID 28 Days Qty: 56 0RF oxycodone-acetaminophen [Percocet] 5-325 mg tablet 1 - 2 tab PO Q4H PRN (Reason: pain) Qty: 18 0RF Rx Instructions: 1 tab for pain 1-5 2 tab for pain 6-10 Continued atorvastatin 40 mg tablet 40 mg PO HS aspirin 81 mg Tablet,Delayed Release (Dr/Ec) 81 mg PO QAM metformin 1,000 mg tablet 1,000 mg PO BID glimepiride 4 mg tablet 4 mg PO BID Rx Instructions: TAKE THIS MEDICATION BEFORE BREAKFAST AND EVENING MEAL gabapentin 300 mg capsule 300 mg PO TID PRN (Reason: Pain) cholecalciferol (vitamin D3) [Vitamin D3] 5,000 unit Tablet 5,000 unit PO QAM irbesartan 75 mg Tablet 75 mg PO QAM Jardiance 25 mg Tablet 25 mg PO QAM Mounjaro 10 mg/0.5 mL Pen Injector 10 mg SUBCUT WK Patient Comments: takes on Saturdays Discontinued oxycodone-acetaminophen 5-325 mg tablet 1 tab PO BID PRN (Reason: Pain) Admission Data Admit Date/Time: 05/16/23 11:10 Attending Provider: Carrillo Yoo Admit Provider: Carrillo Yoo Primary Care Provider: Ester Villa
--- NOTE | 2023-05-16 11:02 | Operative Report ---
Post Operative Report Pre & Post Diagnosis Operation Date: 05/16/23 08:50 Pre-Op Diagnosis: Left Knee Degenerative Joint Disease Post-Op Diagnosis: Left Knee Degenerative Joint Disease I identified the patient and participated in the time-out.: Yes Procedure Operation Date: 05/16/23 08:50 Actual Procedures p Left Total Knee Arthroplasty(Left) - Carrillo Yoo MD Surgeon Carrillo Yoo MD Graphic Design Manager YOLI/Michelet Estimated Blood Loss 75 Findings Consistent with Post-Op Diagnosis Same as postoeprative diagnosis. Specimens The resected portions of the femur and the tibia. Description of Procedure Please see detailed operative note. I attest to the content of the Intraoperative Record and any orders documented therein. Any exceptions are noted below.
--- NOTE | 2023-05-16 11:50 | XRay Report ---
XR knee LT 1 or 2V routine HISTORY: 63 years-old Male S/P L TKA left knee arthroplasty COMPARISON: 12/18/2022 TECHNIQUE: 2 views of left knee FINDINGS: Total joint arthroplasty with patellar resurfacing. Anterior midline skin em with expected posto perative soft tissue swelling and deep tissue air. Arterial calcifications. No acute fracture, disloc ation or osseous erosion. IMPRESSION: Total joint arthroplasty with expected postoperative findings. ACT 112: Negative or not required by law. The above report was generated using voice recognition software. It may contain grammatical, syntax o r spelling errors. Electronically signed by: Daniel Leon M.D. 05/16/2023 11:49 AM
--- NOTE | 2023-05-16 11:58 | Anesthesiology Progress Note ---
Date of Service May 16, 2023 Anesthesia Post Procedure Vital Signs Vital Signs: Temp Pulse Resp BP BP Pulse Ox O2 Del Method 05/16/23 11:35 98.1 F 72 15 134/82 93 Room Air 05/16/23 11:25 76 15 123/68 93 Room Air 05/16/23 11:15 77 18 123/75 93 Room Air 05/16/23 11:05 81 22 122/79 94 Room Air 05/16/23 10:59 96.8 F L 78 14 123/73 96 Room Air 05/16/23 06:18 97.7 F 84 20 161/92 H 96 Room Air Pain Intensity Back: Pain Intensity: 6 Transfer of Care Handoff Completed per policy Notes Mental Status: alert / awake / arousable and participated in evaluation Patient Amnestic to Procedure: Yes Nausea / Vomiting: adequately controlled Pain: adequately controlled Airway Patency, RR, SpO2: stable & adequate BP & HR: stable & adequate Hydration State: stable & adequate Neuraxial Anesthesia: was administered and sensory block is resolving Anesthetic Complications: no major complications apparent and Pt Satisfied with anesthetic care
--- OUTSIDE RECORDS SUMMARY | 2023-05-16 11:58 | External Medical Summary | Summary of Care ---
Author Name Unknown Organization [facility] Address [address] [facility] [place] [address] Phone [phone] Care Team Providers Care Manager Compliance Name Role Phone Ester Villa MD Primary Care Provide r Reason for Visit * Reason Onset Date Comments Fax 05/10/2023 Pre-Op Clearance Encounter Details Date Type Department Care Team (Late st Contact Info) Description 05/10/2023 Telephone Family Medicine [address] [place] [address] Ester Villa MD [address] [place] [address] [place] [address] Fax (Pre-Op Clearance) Allergies Active Allergy Reactions Criticality Noted Date Comments Cephalexin Edema face/lips/tongue,Itching High 04/16 documented as of this encounter (statuses as of 05/11/2023) Medications Medication Sig Dispensed Refills Start Date End Date Status VITAMIN D3 5000 UNIT PO CAPS 1 CAPSULE DAILY 0 02/11/2011 Active Clobetasol Propionate 0.05 % External Ointment (Temovate)Indicatio ns:Pruritic dermatitis Apply topically to affected area 2 times a day. To affected area for up to two weeks. 60 g 1 07/19/2022 Active metFORMIN HCl 1000 MG Oral Tablet (Glucophage)Indicat ions:Type 2 diabetes mellitus with hemoglobin A1c goal of less than 7.0% (HCC),Metabolic syndrome TAKE 1 TABLET BY MOUTH EVERY DAY IN THE MORNING AND AT BEDTIME 180 Tablet 3 10/14/2022 Active Empagliflozin 25 MG Oral Tablet (Jardiance)Indicati ons:Diabetes mellitus with stage 3 chronic kidney disease (HCC) TAKE 1 TABLET BY MOUTH EVERY DAY 90 Tablet 1 11/22/2022 Active Mounjaro 10 MG/0.5ML Subcutaneous Solution Pen-injector (Tirzepatide) Inject 10 mg under the skin once a week. [id number] 2 mL 11 01/30/2023 01/30/2024 Active Irbesartan 75 MG Oral Tablet (Avapro)Indications :Primary hypertension TAKE 1 TABLET BY MOUTH EVERY DAY IN THE MORNING 90 Tablet 1 04/06/2023 Active documented as of this encounter (statuses as of 05/11/2023) Active Problems Problem Noted Date Diagnosed Date Diabetes mellitus with stage 3 chronic kidney di sease 05/09/2023 HTN, goal below 130/80 01/29/2023 BMI 32.0-32.9,adult 10/26/2022 Overview: 257 Primary osteoarthritis of left knee 10/27/2021 Mild nonproliferative diabet ic retinopathy of both eyes without macular edema associated with type 2 diabetes mellitus 06/06/2021 Hypertensive retinopathy of right eye 06/06/2021 Dyslipidemia, goal LDL below 100 05/20/2010 Vitamin D deficiency 03/26/2009 Overview: Vitamin D 19.9 Type 2 diabetes mellitus wit h hemoglobin A1c goal of less than 7.0% 01/07/2009 Overview: Per Diabetes Taxonomy. hgba1c 8.9 ICD-10 update of inactive term Seasonal allergic rhinitis due to pollen 008 ADVANCE DIRECTIVE INFORMATION 07/29/2005 Overview: No, Advance Directive brochure given to patient at prior appointment. High triglycerides 08/19/2004 Overview: chol 181, hdl 36, ldl 83, trig 312 LUMB-LUMBOSAC DISC DEGEN 11/25/2002 Cardiomegaly Primary hypertension documented as of this encounter (statuses as of 05/11/2023) Resolved Problems Problem Noted Date Diagnosed Date Resolved Date Diabetes mellitus with stage 3 chronic kidney disease 12/11/2022 01/29/2023 PAF (paroxysmal atrial fibrillation) 04/21/2020 11/17/2020 Diabetes mellitus with stage 3 chronic kidney disease 05/19/2019 03/14/2022 Overview: Per CKD protocol Olecranon bursitis of left elbow 09/04/2018 11/17/2020 Overview: admitted [facility] Essential hypertension with goal blood pressure less than 140/90 09/27/2015 05/17/2020 HTN, goal below 140/90 09/04/201203/10 HTN, goal below 140/80 10/30/201109/04 Overview: Per HTN Protocol #27. Severe obesity with body mas s index (BMI) of 35.0 to 39.9 with serious comorbidity 01/17/2011 Overview: ICD-10 update of inactive diagnosis Obesity, morbid (more than 1 00 lbs over ideal weight or BMI > 40) 06/08/2009 01/17/2011 Overview: Per Obesity Taxonomy ICD-10 update of inactive term HTN, GOAL BELOW 130/80 04/07/200911/01 Overview: Modified per HTN Taxonomy. HTN, GOAL BELOW 140/90 01/15/200904/07 Overview: Modified per HTN Taxonomy. BRIAN SPLINTS 11/10/2005 11/03/2013 Type 2 diabetes mellitus wit h hemoglobin A1c goal of less than 7.0% 06/02/2005 01/07/2009 Overview: Per Diabetes Taxonomy. hgba1c 8.9 ICD-10 update of inactive term Metabolic syndrome 08/19/2004 9 SKIN SENSATION DISTURB 08/18/200405/04 Plantar fasciitis 04/08/2004 05/04/2017 Overview: left foot OBESITY, UNSPECIFIED 03/25/2001 03/30/2 010 Overview: Per Obesity Taxonomy SKIN HYPERTRO-ATROPH NOS 03/25/2001 Calculus of kidney 8 HTN, goal below 140/90 01/15 Overview: Modified per HTN Taxonomy. BMI 37.0-37.9, adult 021 documented as of this encounter (statuses as of 05/11/2023) Immunizations Name Administration Dates Next Due H1N1 2009 Influenza, IM 01/24/2009 Hepatitis B, 20+ yrs 09/13/2009,04/16/2009,03/16 Pneumococcal Conjugate Vacci ne, 20-valent ([id number]) 10/27/2021 Pneumococcal Polysaccharide PPV23 (Pneumovax) 11/10/2005 Seasonal Influenza, PF, 6 M & above, IM , (FluLaval or Fluzone) 01/29/2023,02/01/2022,11/17/2020,11/11,11/28/2018,11/26/2017,02/21/2017 Seasonal Influenza, Quadriva lent, No Preserve, IM 03/10/2016 Seasonal Influenza, Split, I IV3, No Preserve, Inj 12/10/2009,01/10/2009,12/19/2007,01/10 Seasonal Influenza, Split, I IV3, With Preserve, Inj 12/07/2014,02/03/2014,01/07/2013,01/09,01/17/2011 TD - Tetanus/Diptheria (ADULT) 03/12/2003 TDAP (age 10 and older)(Boostrix) 09/03/2018 TDAP (age 11 and older)(Adacel) 07/24/2008 Zoster Vaccine Recombinant (Shingrix) 10/27/2021 ,04/21/2020 documented as of this encounter Social History Tobacco Use Types Packs/Day Years Used Date Smoking Tobacco: Never Smokeless Tobacco: Never Alcohol Use Standard Drinks/Week Comments No 0 (1 standard drink = 0.6 oz pur e alcohol) PHQ-2 Answer Date Recorded PHQ-2 Score 0 11/12/2019 Hunger Vital Sign Answer Date Recorded Within the past 12 months, y ou worried that your food would run out before you got the money to buy more. Never true 01/22/20 23 Within the past 12 months, t he food you bought just didn't last and you didn't have money to get more. Never true 01/21/2023 Sex and Gender Information Value Date Recorded Sex Assigned at Male 01/21/2023 2:57 PM EST Gender Identity Male 01/21/2023 2:57 PM EST Sexual Orientation Straight 01/21/2023 2: 57 PM EST Job Start Date Occupation Industry Not on file Not on file Not on file documented as of this encounter Miscellaneous Notes * Telephone Encounter - Josephine Hu CMA - 05/11/2023 3:16 PM EST Faxed. * Telephone Encounter - Ester Villa MD - 05/11/2023 9:59 AM EST I specifically asked the pt whether he needs clearance pt stated he does not - however I will addend my note to clear the pt * Telephone Encounter - Ivett Smith RN - 05/10/2023 2:09 PM EST Please addend note 05/09/23 to state if Pt is Cleared for Surgery * Telephone Encounter - Jada Jones OSA - 05/10/2023 12:20 PM EST Caller requesting the following information to be faxed: Name/Company of caller: Alison from [facility] Information requested to be faxed: pre op clearance. She stated she received office visit notes from 05/09/23 visit but there is nothing on there stating pt is cleared for surgery. Fax number: [phone] Attention to Name/Company: na Any additional information?: na documented in this encounter Plan of Treatment Upcoming Encounters Date Type Department Care Team (Late st Contact Info) Description 07/02/2023 9:00 AM EDT Office Visit Pharmacy, [address] [place] [address] [place] [address] 11/07/2023 9:00 AM EDT Office Visit Family Medicine [address] [place] [phone] Ester Villa MD [address] [place] [address] [place] [address] 02/09/2025 10:20 AM EST Office Visit Dermatology [address] [place] [address] Evelina Hoffmann PA-C [address] [place] [address] [place] [address] Health Maintenance Due Date Last Done Comments Colonoscopy 2005 Sigmoidoscopy 2005 Fecal Occult Blood Test 06/02/2017 06/02/2016, 02/01 Depression Screening 11/11/2020 11/12/2019 CKD PHOS USE SMARTSET 41939 04/27/2022 04/27/2021, 0 05/18/2020 B-12 10/27/2022 10/27/2021, 11/11, 10/22/2019, Additional history exists COVID-19 Vaccine ( season) 2022 Albumin/Creatinine Ratio 05/23/2023 023, 04/27/2021, 05/18/2020, Additional history exists Diabetic Eye Exam 05/25/2023 05/24/2022, , 04/21/2020 (Done elsewhere), Additional history exists HbA1c 10/08/2023 04/09/2023, 11/10, 09/04/2022, Additional history exists GFR 10/29/2023 04/30/2023, 08/11, 12/12/2021, Additional history exists CKD HGB USE SMARTSET 41328 04/30/202404/30, 12/12/2021, 04/27/2021, Additional history exists Diabetic Foot Exam 05/09/2024 05/09/2023, 0 10/27/2021, 11/17/2020, Additional history exists Cologuard 06/04/2024 06/04/2021, 05/11, 05/31/2021, Additional history exists Colorectal Cancer Screening 06/04/2024 Lipid Panel 05/23/2027 05/22/2022, 04/12, 05/18/2020, Additional history exists DTaP,Tdap,and Td Vaccines (3 - Td or Tdap) 09/03/2028 09/03/2018, 07/24/2008, 03/12/2003 Hepatitis B Completed 09/13/2009, 07/2009, 03/16/2009 Pneumococcal Vaccine: Pediatrics (0 to 5 Years) and At-Risk Patients (6 to 64 Years) Completed 10/27/2021, 11/10/2005 Zoster Vaccines Completed 10/27/2021, 04/21/2020 Influenza Vaccine (FLU shot) Completed , 02/01/2022, 11/17/2020, Additional history exists GARDASIL-HPV IMMUNIZATION SERIES Aged Out No longer eligible based on patient's age to complete this topic MENINGOCOCCAL (MENACTRA/MENVEO) Aged Out No longer eligible based on patient's age to complete this topic documented as of this encounter Medical Devices Not on filedocumented as of this encounter Care Teams Manager Compliance Relationship Specialty Start Date End Date Ester Villa MD [address] [place] [address] [place] [phone] PCP - General Family Medicine 01/29/23 documented as of this encounter
--- OUTSIDE RECORDS SUMMARY | 2023-05-16 11:59 | External Medical Summary | Summary of Care ---
Author Name Unknown Organization [facility] Address [address] [facility] [place] [address] Phone [phone] Care Team Providers Care Credit Collection Associate Name Role Phone Ester Villa MD Primary Care Provide r Reason for Visit * Reason Comments Physical-Exam Encounter Details Date Type Department Care Team (Late st Contact Info) Description 05/09/2023 1:40 PM EST Office Visit Family Medicine [address] [phone] Ester Villa MD [address] [place] [address] [place] [address] Type 2 diabetes mellitus with hemoglobin A1c goal of less than 7.0% ([facility])*; DM type 2 nursing care encounter ([facility]); Diabetes mellitus with stage 3 chronic kidney disease ([facility]); HTN, goal below 140/90 Allergies Active Allergy Reactions Criticality Noted Date Comments Cephalexin Edema face/lips/tongue,Itching High 04/16 documented as of this encounter (statuses as of 05/11/2023) Medications Medication Sig Dispensed Refills Start Date End Date Status VITAMIN D3 5000 UNIT PO CAPS 1 CAPSULE DAILY 0 02/11/2011 Active Clobetasol Propionate 0.05 % External Ointment (Temovate)Indicati ons:Pruritic dermatitis Apply topically to affected area 2 times a day. To affected area for up to two weeks. 60 g 1 07/19/2022 Active metFORMIN HCl 1000 MG Oral Tablet (Glucophage)Indica tions:Type 2 diabetes mellitus with hemoglobin A1c goal of less than 7.0% (HCC),Metabolic syndrome TAKE 1 TABLET BY MOUTH EVERY DAY IN THE MORNING AND AT BEDTIME 180 Tablet 3 10/14/2022 Active Empagliflozin 25 MG Oral Tablet (Jardiance)Indicat ions:Diabetes mellitus with stage 3 chronic kidney disease (HCC) TAKE 1 TABLET BY MOUTH EVERY DAY 90 Tablet 1 11/22/2022 Active Mounjaro 10 MG/0.5ML Subcutaneous Solution Pen-injector (Tirzepatide) Inject 10 mg under the skin once a week. DxE11.9 2 mL 11 01/30/2023 4 Active Irbesartan 75 MG Oral Tablet (Avapro)Indication s:Primary hypertension TAKE 1 TABLET BY MOUTH EVERY DAY IN THE MORNING 90 Tablet 1 04/06/2023 Active Atorvastatin Calcium 40 MG Oral Tablet (Lipitor)Indicatio ns:Dyslipidemia, goal LDL below 100 TAKE 1 TABLET BY MOUTH EVERYDAY AT BEDTIME 90 Tablet 1 11/16/2022 4 Discontinued documented as of this encounter (statuses as [...] of left elbow 09/04/2018 11/17/2020 Overview: admitted [facility] Essential hypertension with goal blood pressure less [...] 05/04/2017 Overview: left foot OBESITY, UNSPECIFIED 03/25/2001 010 Overview: Per Obesity Taxonomy SKIN HYPERTRO-ATROPH NOS 03/25/2001 Calculus of kidney 8 HTN, goal below 140/90 01/15 Overview: Modified per HTN Taxonomy. BMI 37.0-37.9, adult 021 documented as of this encounter (statuses as of 05/11/2023) Immunizations Name Administration Dates Next Due H1N1 2009 Influenza, IM 01/24/2009 Hepatitis B, 20+ yrs 09/13/2009,04/16/2009,03/16 Pneumococcal Conjugate Vacci ne, 20-valent ([id number]) 10/27/2021 Pneumococcal Polysaccharide PPV23 (Pneumovax) 11/10/2005 Seasonal [...] on file documented as of this encounter Last Filed Vital Signs Vital Sign Reading Time Taken Comments Blood Pressure 136/74 05/09/2023 1:45 PM EST Pulse 100 05/09/2023 1:45 PM EST Temperature 36.1 C (96.9 F) 05/09/2023 1:45 PM ES T Respiratory Rate - - Oxygen Saturation 94% 05/09/2023 1:45 PM EST Inhaled Oxygen Concentration - - Weight 111.4 kg (245 lb 9.6 oz) 05/09/2023 1:45 PM EST Height - - Body Mass Index 34.25 10/26/2022 4:12 PM EDT documented in this encounter Patient Instructions * Patient Instructions* Josephine Hu CMA - 05/09/2023 1:47 PM EST Diabetes: Keeping Feet Healthy Inspect your feet every day for signs of a problem. Diabetes can damage nerves in your feet and cause neuropathy. This condition makes it hard for you to feel injuries or sore spots. Diabetes can also change blood flow, making it harder for small problems, like a blister, to heal properly. In fact, minor injuries can quickly become serious infections that send you to the hospital. Practice self-care to protect your feet and keep them healthy. Take Special Care Inspect your feet daily for problems such as redness, blisters, cracks, dry skin, or numbness. Use a mirror to see the bottoms of your feet. Or, ask for help. Manage your diabetes. Monitor and control your blood sugar. Take all your medications as prescribed. Avoid walking barefoot, even indoors. Wash your feet with warm water and mild soap. Dry well, especially between toes. Dont treat corns or calluses yourself. Talk to your doctor or news production assistant (a doctor who specializes in foot care) if you need assistance trimming your toenails. Use moisturizing cream or lotion if you have dry skin, but dont use it between toes. Dont use heating pads on your feet. If you have neuropathy, you could get a burn and not feel it. Stop smoking. Smoking restricts blood flow and can make it harder for wounds to heal. Have Regular Checkups Foot problems can develop quickly. So be sure to follow your healthcare teams schedule for regular checkups. During office visits, take off your shoes and socks as soon as you get in the exam room. Ask your healthcare provider to examine your feet for problems. This will make it easier to find and treat small skin irritations before they get worse. Regular checkups can also help keep track of the blood flow and feeling in your feet. If you have neuropathy, you may need to have checkups more often. Wear Proper Footwear Wearing proper footwear is very important. If areas of your feet have been damaged by too much pressure, your healthcare provider may recommend changing your footwear. In some cases, avoiding high heels or tight work boots may be all thats needed. Or, your healthcare provider may recommend special shoes or custom inserts. These help protect your feet and keep existing irritations from getting worse. If you need special footwear, ask your healthcare provider if you qualify for [employer] diabetic shoe program. Make Sure Shoes and Socks Fit Any pair of shoes--new or old--should feel comfortable as soon as you put them on. There shouldnt be any rubbing when you walk. Wear the right shoe for any activity. For instance, a running shoe is designed to keep your feet injury-free while jogging. Buy shoes at the end of the day, when your feet are larger. Make sure they provide support without feeling too loose. Make sure your socks fit, t oo. Wear soft, seamless, well-padded socks for activity. Cotton or microfiber socks are best to help to absorb sweat. To protect your feet, avoid shoes that are open-toed or open-heeled. If you have questions about what kinds of shoes and socks are best, talk to your healthcare team. Get Regular Exercise Regular exercise improves blood flow in your feet. It also increases foot strength and flexibility.Gentle exercises, like walking or riding a stationary bicycle, are best. You can also do special foot exercises. Just be sure to talk with your healthcare provider before starting any exercise program. Also mention if any exercise causes pain, redness, or other signs of foot problems. Note: If you have any kind of break in the skin of your foot or ankle, keep the area clean. Then call your doctor--especially if the area doesnt appear to be healing. [id number] [employer], [address] [place] [address]. All rights reserved. This information is not intended as a substitute for professional medical care. Always follow your healthcare professional's instructions. documented in this encounter Progress Notes * Ester Villa MD - 05/09/2023 1:52 PM EST Subjective: HPI: Eduardo Holloway is a 63 year old male with hx of uncontrolled DMII, HLD, post-op afib, HTN seen for DMII: - currently on Jardiance 25mg daily, Metformin 1000mg BID, Mounjaro 10mg weekly - last A1C was 6.8 - pt is happy with current diet HTN: - Irbesartan 75mg daily Sched for L knee replacement on 05/16/23 Patient Active Problem List Diagnosis Code LUMB-LUMBOSAC DISC DEGEN M51.37 Cardiomegaly I51.7 High triglycerides E78.1 ADVANCE DIRECTIVE INFORMATION Seasonal allergic rhinitis due to pollen J30.1 Type 2 diabetes mellitus with hemoglobin A1c goal of less than 7.0% ([facility]) E11.9 Vitamin D deficiency E55.9 Dyslipidemia, goal LDL below 100 E78.5 BMI 32.0-32.9,adult Z68.32 Primary hypertension I10 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 To affected area for up to two weeks. 60 g 1 metFORMIN HCl 1000 MG Oral Tablet (Glucophage) TAKE 1 TABLET BY MOUTH EVERY DAY IN THE MORNING AND AT BEDTIME 180 Tablet 3 Atorvastatin Calcium 40 MG Oral Tablet (Lipitor) TAKE 1 TABLET BY MOUTH EVERYDAY AT BEDTIME 90 Tablet 1 Empagliflozin 25 MG Oral Tablet (Jardiance) TAKE 1 TABLET BY MOUTH EVERY DAY 90 Tablet 1 Mounjaro 10 MG/0.5ML Subcutaneous Solution Pen-injector (Tirzepatide) Inject 10 mg under the skin once a week. DxE11.9 2 mL 11 Irbesartan 75 MG Oral Tablet (Avapro) TAKE 1 TABLET BY MOUTH EVERY DAY IN THE MORNING 90 Tablet 1 No current facility-administered medications for this visit. Past Medical History: Diagnosis Date BMI 38.0-38.9,adult Bug bite of finger, infected 04/11/2015 [facility] ER, right thigh, Keflex and Bactrim Calculus of kidney Cardiomegaly Cellulitis of left elbow 09/04/2018 [facility] Closed fracture of phalanx of finger 04/13/2006 Fracture left middle finger, middle phalanx COVID-19 11/29/2022 Degeneration of lumbosacral intervertebral disc DM type 2, goal A1c below 7 06/02/2005 hgba1c 8.9 Encounter for ophthalmic examination and evaluation 06/29/2006 Dr Moran, no retinopathy High triglycerides 08/19/2004 chol 181, hdl 36, ldl 83, trig 312 HTN, goal below 140/90 Hypertensive retinopathy of right eye 06/06/2021 Hypertrophic and atrophic condition of skin Influenza A 04/03/2018 nasal swab Metabolic syndrome 08/19/2004 glucose 140, trig 312, hdl 36 weight 290 Mild nonproliferative diabetic retinopathy of both eyes without macular edema associated with type 2 diabetes mellitus (HCC) 06/06/2021 Nasal bones, open fracture 09/19/2005 Dr Curran Need for hepatitis C screening test 04/15/2015 negative Olecranon bursitis of left elbow 09/04/2018 admitted [facility] with bursitis and staph sepsis Plantar fasciitis 04/08/2004 left foot Primary hypertension Primary osteoarthritis of left knee 10/27/2021 Renal colic 10/26/2007 right Rupture of right long head biceps tendon 2020 Complete rupture of the proximal long head biceps tendon, with the tendon stump retracted at least to the level of the pectoralis major insertion Screening for HIV without presence of risk factors 04/15/2015 negative Viral warts, unspecified 06/02/2005 left forearm Vitamin D deficiency 03/26/2009 Vitamin D 19.9 Past Surgical History: Procedure Laterality Date ABD/PELVIS CT W/O IV AND W/ PO CONTRAST 10/26/2007 right hydronephrosis related to 4 mm right mid ureteral calculus ASPIRATE INTERMEDIATE JX/BURSA W/O US GUIDE Left 09/06/[address] Jimmy marley sepsis CHEST 1 VIEW 01/02/2001 PAH--there is cardiac enlargement without failure. No acute disease. COLOGUARD 12/24/2017 negative COLOGUARD 05/31/[address] HEAD/BRAIN WO CONTRAST 06/06/2014 no acute findings MRI L SPINE WO CONTRAST 11/03/2002 moderate spinal stenosis L5-S1 secondary to a combination of gradeI/II spondylolistheisis as well as abroad based disc herniation. Significant formainal stenosis at L5-S1, more on the left, with mildreactive edema of the nerve root. NASAL/SINUS ENDOSCOPY, SURGICAL 09/2005 Dr Curran XR FINGERS 2 OR MORE VIEWS 04/13/2006 soft tissue swelling and tiny linear nondisplaced fracture in the volar endplate at the base of themiddle phalanx of the left middle finger XR KNEE 1-2 VIEWS 02/08/2003 PAH normal XR NASAL BONES 09/19/2005 comminuted fracture nasal bones, 2x6 fell and hit nose XR NECK TISSUE 06/30/2001 [facility] normal appearing epiglottis,There is no opaque foreign body seen.The bony structures are unremarkable for age with mild facet joint arthropathy noted. Conclusion: No abnormality is seen Review of patient's allergies indicates: Allergen Reactions Cephalexin Edema face/lips/tongue and Itching No family history on file. Social History Tobacco Use Smoking status: Never Smokeless tobacco: Never Substance Use Topics Alcohol use: No Vaping/E-Cigarette Use Vaping/E-Cigarette Substances Vaping/E-Cigarette Devices ROS: -Per HPI OBJECTIVE: BP 136/74 | Pulse 100 | Temp 36.1 C (96.9 F) | Wt 111.4 kg (245 lb 9.6 oz) | SpO2 94% | BMI 34.25 kg/m | BSA 2.36 m PHYSICAL EXAM: Vitals are reviewed General:. NAD, well developed HEENT:. Normal Conjunctiva, EOMI Cardiac:. Normal S1, S2, no murmur Lungs:. CTA, no wheezing or crackles Abd:. soft, ND, NT MSK:. Normal gait Psych:. AAOx3, normal affect ASSESSMENT/PLAN: Type 2 diabetes mellitus with hemoglobin A1c goal of less than 7.0% ([facility]) (Primary) - pt is doing well on increased dose of mounjaro DM type 2 nursing care encounter (HCC) - DIABETES FOOT EXAM Diabetes mellitus with stage 3 chronic kidney disease (HCC) - Cr is stable HTN, goal below 140/90 - BP wnl Follow Up: Return in about 6 months (around 11/07/2023). Addendum on 05/11/23 - during the clinic visit when inquired about preop clearance pt stated that he did not need clearance - however I received a request from the surgery team Pt has prior hx of gen anesthesia: no adverse affect No hx of MO or CVA No hx of smoking or being on AC Pt's A1c has improved well and his chronic conditions are stable Pt does have hx of Post-on Afib thus will get an EKG after surgery or post op heart monitor while in recovery Revised cardiac index of zero and pt is cleared for surgery Ester Villa MD [place] [address] * Josephine Hu CMA - 05/09/2023 1:47 PM EST DM Foot Exam completed today. Provider aware. Josephine Hu CMA Socks and Shoes Removed for Annual Diabetic Foot Screening RIGHT FOOT: No Reddened, Cracking, Or Open Areas Noted. RIGHT Dorsalis Pedis Pulse: Palpable RIGHT Posterior Tibial Pulse: Palpable RIGHT Monofilament:Patient reports feeling monofilament pressure on plantar surface of foot LEFT FOOT: No Reddened, Cracking or Open Areas Noted. LEFT Dorsalis Pedis Pulse: Palpable LEFT Posterior Tibial Pulse: Palpable LEFT Monofilament:Patient reports feeling monofilament pressure on plantar surface of foot Do you need diabetic shoes: No documented in this encounter Nursing Notes * Josephine Hu CMA - 05/09/2023 1:44 PM EST He is here today for a 3 mo recheck. He is having right flank pain. documented in this encounter Plan of Treatment Upcoming Encounters Date Type Department Care Team (Late st Contact Info) Description 07/02/2023 9:00 AM EDT Office Visit Pharmacy, [address] [place] [address] [place] [address] 11/07/2023 9:00 AM EDT Office Visit Family Medicine [address] [phone] Ester Villa MD [address] [place] [address] [place] [address] 02/09/2025 10:20 AM EST Office Visit Dermatology [address] [place] [address] Evelina Hoffmann PA-C [address] [place] [address] [place] [address] Health Maintenance Due Date Last Done Comments Colonoscopy 2005 Sigmoidoscopy 2005 Fecal Occult Blood Test 06/02/2017 06/02/2016, 02/01 Depression Screening 11/11/2020 11/12/2019 CKD PHOS USE SMARTSET 07663 04/27/2022 04/27/2021, 0 05/18/2020 B-12 10/27/2022 10/27/2021, 11/11, 10/22/2019, Additional history exists COVID-19 Vaccine ( season) 2022 Albumin/Creatinine Ratio 05/23/2023 023, 04/27/2021, 05/18/2020, Additional history exists Diabetic Eye Exam 05/25/2023 05/24/2022, , 04/21/2020 (Done elsewhere), Additional history exists HbA1c 10/08/2023 04/09/2023, 11/10, 09/04/2022, Additional history exists GFR 10/29/2023 04/30/2023, 08/11, 12/12/2021, Additional history exists CKD HGB USE SMARTSET 36579 04/30/202404/30, 12/12/2021, 04/27/2021, Additional history exists Diabetic [...] Not on filedocumented as of this encounter Visit Diagnoses Diagnosis Type 2 diabetes mellitus with hemoglobin A1c goal of less than 7.0% (HCC)- Primary DM type 2 nursing care encounter (HCC) Type II or unspecified type diabetes mellitus without mention of complication, not stated as uncontrolled Diabetes mellitus with stage 3 chronic kidney disease (HCC) Type II or unspecified type diabetes mellitus with renal manifestations, not stated as uncontrolled HTN, goal below 140/90 Unspecified essential hypertension documented in this encounter Care Teams Credit Collection Associate Relationship Specialty Start Date End Date Ester Villa MD [address] [place] [address] [place] [address] PCP - General Family Medicine 01/29/23 documented as of this encounter"
--- OUTSIDE RECORDS SUMMARY | 2023-05-16 11:59 | External Medical Summary | Summary of Care ---
Author Name Unknown Organization [facility] Address [address] [facility] [place] [address] Phone [phone] Care Team Providers Care Assurance Engineer Name Role Phone Ester Villa MD Primary Care Provide r Reason for Visit * Reason Comments Physical-Exam Encounter Details Date Type Department Care Team (Late st Contact Info) Description 05/09/2023 1:40 PM EST Office Visit Family Medicine [address] [phone] Ester Villa MD [address] [place] [address] [place] [address] Type 2 diabetes mellitus with hemoglobin A1c goal of less than 7.0% ([facility])*; DM type 2 nursing care encounter ([facility]); Diabetes mellitus with stage 3 chronic kidney disease ([facility]); HTN, goal below 140/90 Allergies Active Allergy Reactions Criticality Noted Date Comments Cephalexin Edema face/lips/tongue,Itching High 04/16 documented as of this encounter (statuses as of 05/09/2023) Medications Medication Sig Dispensed Refills Start Date [...] AT BEDTIME 180 Tablet 3 10/14/2022 Active Atorvastatin Calcium 40 MG Oral Tablet (Lipitor)Indication s:Dyslipidemia, goal LDL below 100 TAKE 1 TABLET BY MOUTH EVERYDAY AT BEDTIME 90 Tablet 1 11/16/2022 Active Empagliflozin 25 MG Oral Tablet (Jardiance)Indicati [...] as of this encounter (statuses as of 05/09/2023) Active Problems Problem Noted Date Diagnosed Date [...] as of this encounter (statuses as of 05/09/2023) Resolved Problems Problem Noted Date Diagnosed Date Resolved Date Diabetes mellitus with stage 3 chronic kidney disease 12/11/2022 01/29/2023 PAF (paroxysmal atrial fibrillation) 04/21/2020 11/17/2020 Diabetes mellitus with stage 3 chronic kidney disease 05/19/2019 03/14/2022 Overview: Per CKD protocol Olecranon bursitis of left elbow 09/04/2018 11/17/2020 Overview: admitted [facility] Essential hypertension with goal blood pressure less [...] as of this encounter (statuses as of 05/09/2023) Immunizations Name Administration Dates Next Due H1N1 2009 Influenza, IM 01/24/2009 Hepatitis B, 20+ yrs 09/13/2009,04/16/2009,03/16 Pneumococcal Conjugate Vacci ne, 20-valent ([id number]) 10/27/2021 Pneumococcal Polysaccharide PPV23 (Pneumovax) 11/10/2005 Seasonal [...] calluses yourself. Talk to your doctor or distribution center supervisor (a doctor who specializes in foot care) [...] the area doesnt appear to be healing. [id number] [employer], [address] [place] [address]. All rights reserved. This information is not intended as a substitute for professional medical care. Always follow your healthcare professional's instructions. documented in this encounter Progress Notes * Etser Villa MD - 05/09/2023 1:52 PM EST [...] hemoglobin A1c goal of less than 7.0% ([facility]) E11.9 Vitamin D deficiency E55.9 Dyslipidemia, goal LDL below 100 E78.5 BMI 32.0-32.9,adult Z68.32 Primary hypertension I10 Mild nonproliferative diabetic retinopathy of both eyes without macular edema associated with type 2 diabetes mellitus ([facility]) E11.3293 Hypertensive retinopathy of right eye H35.031 Primary osteoarthritis of left knee M17.12 HTN, goal below 130/80 I10 Diabetes mellitus with stage 3 chronic kidney disease ([facility]) E11.22, N18.30 Current Outpatient Medications Medication Sig [...] 38.0-38.9,adult Bug bite of finger, infected 04/11/2015 [facility] ER, right thigh, Keflex and Bactrim Calculus of kidney Cardiomegaly Cellulitis of left elbow 09/04/2018 [facility] Closed fracture of phalanx of finger 04/13/2006 [...] Olecranon bursitis of left elbow 09/04/2018 admitted [facility] with bursitis and staph sepsis Plantar fasciitis [...] hemoglobin A1c goal of less than 7.0% (HCC) (Primary) - pt is doing well on increased dose of mounjaro DM type 2 nursing care encounter (HCC) - DIABETES FOOT EXAM Diabetes mellitus with stage 3 chronic kidney disease (HCC) - Cr is stable HTN, goal below 140/90 - BP wnl Follow Up: Return in about 6 months (around 11/07/2023). Ester Villa MD Family medicine, [place] [phone] * Josephine Hu CMA - 05/09/2023 1:47 [...] 07/02/2023 9:00 AM EDT Office Visit Pharmacy, [address] [place] [address] [place] [address] 11/07/2023 9:00 AM EDT Office Visit Family Medicine [address] [phone] Ester Villa MD [address] [place] [address] [place] [address] 02/09/2025 10:20 AM EST Office Visit Dermatology [address] [place] [address] Evelina Hoffmann PA-C [address] [place] [address] [place] [address] Health Maintenance Due Date Last Done Comments Colonoscopy 2005 Sigmoidoscopy 2005 Fecal Occult Blood Test 06/02/2017 06/02/2016, 02/01 Depression Screening 11/11/2020 11/12/2019 CKD PHOS USE SMARTSET [id number] 04/27/2022 04/27/2021, 0 05/18/2020 B-12 10/27/2022 10/27/2021, 11/11, 10/22/2019, Additional history exists COVID-19 Vaccine ( season) 2022 Albumin/Creatinine Ratio 05/23/2023 023, 04/27/2021, 05/18/2020, Additional history exists Diabetic Eye Exam 05/25/2023 05/24/2022, , 04/21/2020 (Done elsewhere), Additional history exists HbA1c 10/08/2023 04/09/2023, 11/10, 09/04/2022, Additional history exists GFR 10/29/2023 04/30/2023, 08/11, 12/12/2021, Additional history exists CKD HGB USE SMARTSET 03011 04/30/202404/30, 12/12/2021, 04/27/2021, Additional history exists Diabetic [...] hypertension documented in this encounter Care Teams Assurance Engineer Relationship Specialty Start Date End Date Ester Villa MD [address] [place] [address] [place] [address] PCP - General Family Medicine 01/29/23 documented as of this encounter"
--- OUTSIDE RECORDS SUMMARY | 2023-05-16 11:59 | External Medical Summary | Summary of Care ---
Author Name Unknown Organization [facility] Address [address] [facility] [place] [address] Phone [phone] Care Team Providers Care Manufactured Buildings Repairer Name Role Phone Ester Villa MD Primary Care Provide r Reason for Visit * Reason Onset Date Comments Fax 05/10/2023 Pre-Op Clearance Encounter Details Date Type Department Care Team (Late st Contact Info) Description 05/10/2023 Telephone Family Medicine [address] [place] [address] Ester Villa MD [address] [place] [address] [place] [address] Fax (Pre-Op Clearance) Allergies [...] of left elbow 09/04/2018 11/17/2020 Overview: admitted [facility] Essential hypertension with goal blood pressure [...] yrs 09/13/2009,04/16/2009,03/16 Pneumococcal Conjugate Vacci ne, 20-valent ([id number]) 10/27/2021 Pneumococcal Polysaccharide PPV23 (Pneumovax) 11/10/2005 Seasonal [...] encounter Miscellaneous Notes * Telephone Encounter - Ester Villa MD [...] be faxed: Name/Company of caller: Alison from [facility] medicine Information requested to be faxed: pre op clearance. She stated she received office visit notes from 05/09/23 visit but there is nothing on there stating pt is cleared for surgery. Fax number: [phone] Attention to Name/Company: na Any additional information?: na documented in this encounter Plan of Treatment Upcoming Encounters Date Type Department Care Team (Late st Contact Info) Description 07/02/2023 9:00 AM EDT Office Visit Pharmacy, [address] [place] [address] [place] [address] 11/07/2023 9:00 AM EDT Office Visit Family Medicine [address] [place] Ester Villa MD [address] [place] [address] [place] [address] 02/09/2025 10:20 AM EST Office Visit Dermatology [address] [place] [address] Evelina Hoffmann PA-C [address] [place] [address] [place] [address] Health Maintenance Due Date Last Done Comments Colonoscopy 2005 Sigmoidoscopy 2005 Fecal Occult Blood Test 06/02/2017 06/02/2016, 02/01 Depression Screening 11/11/2020 11/12/2019 CKD PHOS USE SMARTSET 38000 04/27/2022 04/27/2021, 0 05/18/2020 B-12 10/27/2022 10/27/2021, 11/11, 10/22/2019, Additional history exists COVID-19 Vaccine ( season) 2022 Albumin/Creatinine Ratio 05/23/2023 023, 04/27/2021, 05/18/2020, Additional history exists Diabetic Eye Exam 05/25/2023 05/24/2022, , 04/21/2020 (Done elsewhere), Additional history exists HbA1c 10/08/2023 04/09/2023, 11/10, 09/04/2022, Additional history exists GFR 10/29/2023 04/30/2023, 08/11, 12/12/2021, Additional history exists CKD HGB USE SMARTSET 87124 04/30/202404/30, 12/12/2021, 04/27/2021, Additional history exists Diabetic [...] filedocumented as of this encounter Care Teams Manufactured Buildings Repairer Relationship Specialty Start Date End Date Ester Villa MD [address] [place] [address] [place] [address] PCP - General Family Medicine 01/29/23 documented as of this encounter
--- OUTSIDE RECORDS SUMMARY | 2023-05-16 11:59 | External Medical Summary | Summary of Care ---
Author Name Unknown Organization [facility] Address [address] [facility] [place] [address] Phone [phone] Care Team Providers Care Summer Child Caregiver Name Role Phone Ester Villa MD Primary Care Provide r Reason for Visit * Reason Onset Date Comments Fax 05/10/2023 Pre-Op Clearance Encounter Details Date Type Department Care Team (Late st Contact Info) Description 05/10/2023 Telephone Family Medicine [address] [place] [address] Ester Villa MD [address] [place] [address] [place] [address] Fax (Pre-Op Clearance) Allergies [...] of left elbow 09/04/2018 11/17/2020 Overview: admitted [facility] Essential hypertension with goal blood [...] yrs 09/13/2009,04/16/2009,03/16 Pneumococcal Conjugate Vacci ne, 20-valent ([id number]) 10/27/2021 Pneumococcal Polysaccharide PPV23 (Pneumovax) 11/10/2005 Seasonal [...] be faxed: Name/Company of caller: Alison from [facility] Sports medicine Information requested to be faxed: pre op clearance. She stated she received office visit notes from 05/09/23 visit but there is nothing on there stating pt is cleared for surgery. Fax number: [phone] Attention to Name/Company: na Any additional information?: na documented in this encounter Plan of Treatment Upcoming Encounters Date Type Department Care Team (Late st Contact Info) Description 07/02/2023 9:00 AM EDT Office Visit Pharmacy, [address] [place] [address] [place] [address] 11/07/2023 9:00 AM EDT Office Visit Family Medicine [address] [place] Ester Villa MD [address] [place] [address] [place] [address] 02/09/2025 10:20 AM EST Office Visit Dermatology [address] [place] [address] Evelina Hoffmann PA-C [address] [place] [address] [place] [address] Health Maintenance Due Date Last Done Comments Colonoscopy 2005 Sigmoidoscopy 2005 Fecal Occult Blood Test 06/02/2017 06/02/2016, 02/01 Depression Screening 11/11/2020 11/12/2019 CKD PHOS USE SMARTSET 07374 04/27/2022 04/27/2021, 0 05/18/2020 B-12 10/27/2022 10/27/2021, 11/11, 10/22/2019, Additional history exists COVID-19 Vaccine ( season) 2022 Albumin/Creatinine Ratio 05/23/2023 023, 04/27/2021, 05/18/2020, Additional history exists Diabetic Eye Exam 05/25/2023 05/24/2022, , 04/21/2020 (Done elsewhere), Additional history exists HbA1c 10/08/2023 04/09/2023, 11/10, 09/04/2022, Additional history exists GFR 10/29/2023 04/30/2023, 08/11, 12/12/2021, Additional history exists CKD HGB USE SMARTSET 98110 04/30/202404/30, 12/12/2021, 04/27/2021, Additional history exists Diabetic [...] filedocumented as of this encounter Care Teams Summer Child Caregiver Relationship Specialty Start Date End Date Ester Villa MD [address] [place] [address] [place] [address] PCP - General Family Medicine 01/29/23 documented as of this encounter
--- OUTSIDE RECORDS SUMMARY | 2023-05-16 11:59 | External Medical Summary | Continuity of Care Document ---
Author Name Unknown Organization [facility] [address] [id number] Address [address] [place] [address] [id number] Encounter [facility] [id number] Date(s): 04/30/23 - 04/30/23 [facility] [address] [facility] [address] [facility] Medicine [address] [place] [id number] Encounter Diagnosis Osteoarthritis of left knee(Discharge Diagnosis) - 04/30/23 Discharge Disposition: Home or Self Care Attending Physician: MD Yoo Wayne J Referring Physician: MD Yoo Wayne J Allergies, Adverse Reactions, Alerts No Known Allergies Medications acetaminophen-oxyCODONE 325 mg-5 mg oral tablet Start: 02/24/21 15:11:00 EST, 1 tab, PO, q6h, Refills: 0, PRN: as needed for pain Start Date: 02/24/21 Status: Ordered atorvastatin 40 mg oral tablet Start: 02/24/21 15:12:00 EST, 1 tab, PO, Daily Start Date: 02/24/21 Status: Ordered diclofenac sodium 75 mg oral delayed release tablet Start: 08/12/21 16:07:00 EDT, 1 tab, PO, bid, Disp# 28 tab, Note to Pharmacy: take with food, PRN: as needed for arthritis, Pharmacy: [id number] Start Date: 08/12/21 Status: Ordered Euflexxa 10 mg/mL intra-articular solution Start: 04/08/21 14:25:00 EST, 20 mg =, intra-articular, q7days, Disp# 6 mL, inject 2 mL once every 7 days for 3 weeks, Pharmacy: [facility] Start Date: 04/08/21 Status: Ordered fenofibrate 134 mg oral capsule Start: 02/24/21 15:13:00 EST, 1 cap, PO, Daily Start Date: 02/24/21 Status: Ordered gabapentin 300 mg oral capsule Start: 02/24/21 15:13:00 EST, 1 cap, PO, Daily Start Date: 02/24/21 Status: Ordered metFORMIN 1000 mg oral tablet Start: 02/24/21 15:12:00 EST, 1 tab, PO, bid Start Date: 02/24/21 Status: Ordered methocarbamol 750 mg oral tablet Start: 02/24/21 15:12:00 EST Start Date: 02/24/21 Status: Ordered Mounjaro 2.5 mg/0.5 mL subcutaneous solution Start: 12/18/22 9:42:00 EDT, 2.5 mg = Start Date: 12/18/22 Status: Ordered tamsulosin 0.4 mg oral capsule Start: 12/18/22 9:42:00 EDT, 1 cap, PO, Daily Start Date: 12/18/22 Status: Ordered traZODone 50 mg oral tablet Start: 02/24/21 15:11:00 EST, 1 tab, PO, qhs Start Date: 02/24/21 Status: Ordered Mental Status 04/30/23 Barriers to Learning one year None evide nt Mandatory Health Literacy Documentation Yes Health Literacy Communication Barriers N ever Primary Language Uzbek Problem List Condition Confirmation Course Effective Dates Status H ealth Status Informant Diabetes Confirmed Active Hyperlipidemia Confirmed Active Osteoarthritis of left knee Confirmed Active Diagnosis Diagnosis Type Effective Dates Health Status Clinical Service Informant Osteoarthritis of left knee Discharge Diagnosis 04/30/23 Procedures Procedure Date Related Diagnosis Body Site Status Elbow 1 Completed Knee 2 Completed 1left 2Bilateral arthroscopic surgery Vital Signs Most recent to oldest [Reference Range]: 1 Height 181 cm (04/30/23 8:38 AM) Patient Weight 111 kg (04/30/23 8:38 AM) Body Mass Index 33.88 kg/m2 (04/30/23 8:38 AM) Temperature [36.5-37.9 DegC] 36.2 DegC *LOW* (04/30/23 8:38 AM) Heart Rate 96 bpm (04/30/23 8:38 AM) Blood Pressure 134/72mmHg (04/30/23 8:38 AM) Cuff Pulse Pressure 62 mmHg (04/30/23 8:38 AM) Social History Social History Type Response Smoking Status Never smoked cigaret adonis Sex Male Ortho Outpt Note * Kye Latham: PERFORM, MODIFY Event Display: Ortho Outpt Note Authored Date: [id number] Name:SKY IVAN Patient Number:[id number] :1960 Date of Service:04/30/2023 CHIEF COMPLAINT: Sx. consent HPI: Gian Easley presents today forf/u Left knee and surgical consent form. He is doing well and has been able to lower his A1C to 6.8 after switching to Manjaro and Ozempic. He has difficulty walking and has pain with his gain. He is scheduled for 05/16/2023. He is eagerto proceed with surgery. PHYSICAL EXAM: Focus on the left lower extremity: Femoral and sciatic nerve function intact. ROM: -2 to 95 Ligaments are intact Skin is intact and healthy RADIOGRAPHY: I reviewed x-rays taken 12/18/2022 which shows severe left knee medial joint space narrowing and varus alignment. IMPRESSION: 62 year old male with left knee osteoarthritis PLAN: After a lengthy discussion with the patient today regarding my above clinical findings, [as well asreviewing their imaging with them,] their treatment options of conservative management versus surgical intervention were discussed. - The risks, benefits, and alternatives to surgical intervention were discussed with patient. Allergies reviewed. All questions were answered. Informed consent was signed for []. - They will follow-up to have a pre-operative history and physical examination performed. The patient understood all my instructions and explanation: all their questions were satisfactorilyaddressed. ATTESTATION: I, Kye Latham, scribing for and in the presence of, Carrillo Yoo, on this date,04/30/2023 08:45:41. Electronic Signature on File Electronically Reviewed/Signed by: Kye Latham Author Signature Dt/Tm:04/30/2023 08:56 AM Electronically Reviewed/Signed by: Carrillo Yoo MD Cosigner Signature Dt/Tm: 04/30/2023 09:[address] Monitor for Clinical Affairs, Formerly [facility] Professor in Orthopaedics [employer] Executive Director, [facility] DS
--- OUTSIDE RECORDS SUMMARY | 2023-05-16 11:59 | External Medical Summary | Summary of Care ---
Author Name Unknown Organization [facility] Address [address] [facility] [place] [address] Phone [phone] Care Team Providers Care Assembly Room Supervisor Name Role Phone Ester Villa MD Primary Care Provide r Reason for Visit * Reason Comments eRx-Medication Refill Encounter Details Date Type Department Care Team (Late st Contact Info) Description 05/10/2023 Refill Family Medicine [address] [place] [address] Donnie Resendiz MD [address] [place] [address] [place] [address] Dyslipidemia, goal LDL below 100 Allergies Active Allergy Reactions Criticality Noted Date Comments Cephalexin Edema face/lips/tongue,Itching High 04/16 documented as of this encounter (statuses as of 05/10/2023) Medications Medication Sig Dispensed Refills Start Date [...] a week. DxE11.9 2 mL 11 01/30/2023 Active Irbesartan 75 MG Oral Tablet (Avapro)Indication s:Primary hypertension TAKE 1 TABLET BY MOUTH EVERY DAY IN THE MORNING 90 Tablet 1 04/06/2023 Active Atorvastatin Calcium 40 MG Oral Tablet (Lipitor)Indicatio ns:Dyslipidemia, goal LDL below 100 TAKE 1 TABLET BY MOUTH EVERYDAY AT BEDTIME 90 Tablet 1 05/10/2023 Active Atorvastatin Calcium 40 MG Oral Tablet (Lipitor)Indicatio ns:Dyslipidemia, goal LDL below 100 TAKE 1 TABLET BY MOUTH EVERYDAY AT BEDTIME 90 Tablet 1 11/16/2022 4 Discontinued documented as of this encounter (statuses as of 05/10/2023) Active Problems Problem Noted Date Diagnosed Date [...] as of this encounter (statuses as of 05/10/2023) Resolved Problems Problem Noted Date Diagnosed Date Resolved Date Diabetes mellitus with stage 3 chronic kidney disease 12/11/2022 01/29/2023 PAF (paroxysmal atrial fibrillation) 04/21/2020 11/17/2020 Diabetes mellitus with stage 3 chronic kidney disease 05/19/2019 03/14/2022 Overview: Per CKD protocol Olecranon bursitis of left elbow 09/04/2018 11/17/2020 Overview: admitted [facility] Essential hypertension with goal blood pressure less [...] as of this encounter (statuses as of 05/10/2023) Immunizations Name Administration Dates Next Due H1N1 2009 Influenza, IM 01/24/2009 Hepatitis B, 20+ yrs 09/13/2009,04/16/2009,03/16 Pneumococcal Conjugate Vacci ne, 20-valent ([id number]) 10/27/2021 Pneumococcal Polysaccharide PPV23 (Pneumovax) 11/10/2005 Seasonal [...] encounter Miscellaneous Notes * Telephone Encounter - Daniel Moses [facility] - 05/10/2023 1:10 PM ESTSigned Prescriptions: Disp Refills Atorvastatin Calcium 40 MG Oral Tablet (Li*90 Tab*1 Sig: TAKE 1TABLET BY MOUTH EVERYDAY AT BEDTIMEAuthorizing Provider: Christofer VILLA User: DANIEL MOSES documented in this encounter Plan of Treatment Upcoming Encounters Date Type Department Care Team (Late st Contact Info) Description 07/02/2023 9:00 AM EDT Office Visit Pharmacy, [address] [place] [address] [place] [address] 11/07/2023 9:00 AM EDT Office Visit Family Medicine [address] [place] [phone] Ester Villa MD [address] [place] [address] [place] [address] 02/09/2025 10:20 AM EST Office Visit Dermatology [address] [place] [address] Evelina Hoffmann PA-C [address] [place] [address] [place] [address] Health Maintenance Due Date Last Done Comments Colonoscopy 2005 Sigmoidoscopy 2005 Fecal Occult Blood Test 06/02/2017 06/02/2016, 02/01 Depression Screening 11/11/2020 11/12/2019 CKD PHOS USE SMARTSET 85835 04/27/2022 04/27/2021, 0 05/18/2020 B-12 10/27/2022 10/27/2021, 11/11, 10/22/2019, Additional history exists COVID-19 Vaccine ( season) 2022 Albumin/Creatinine Ratio 05/23/2023 023, 04/27/2021, 05/18/2020, Additional history exists Diabetic Eye Exam 05/25/2023 05/24/2022, , 04/21/2020 (Done elsewhere), Additional history exists HbA1c 10/08/2023 04/09/2023, 11/10, 09/04/2022, Additional history exists GFR 10/29/2023 04/30/2023, 08/11, 12/12/2021, Additional history exists CKD HGB USE SMARTSET 60580 04/30/202404/30, 12/12/2021, 04/27/2021, Additional history exists Diabetic [...] as of this encounter Visit Diagnoses Diagnosis Dyslipidemia, goal LDL below 100 Other and unspecified hyperlipidemia documented in this encounter Care Teams Assembly Room Supervisor Relationship Specialty Start Date End Date Ester Villa MD [address] [place] [address] [place] [address] PCP - General Family Medicine 01/29/23 documented as of this encounter
--- OUTSIDE RECORDS SUMMARY | 2023-05-16 12:00 | External Medical Summary | Summary of Care ---
Author Name Unknown Organization [facility] Address [address] [facility] [place] [address] Phone [phone] Care Team Providers Care Fax Machine Operator Name Role Phone Ester Villa MD Primary Care Provide r Encounter Details Date Type Department Care Team (Late st Contact Info) Description 04/30/2023 Result Scan Unspecified Department <No scans attached> Allergies Active Allergy Reactions Criticality Noted Date Comments Cephalexin Edema face/lips/tongue,Itching High 04/16 documented as of this encounter (statuses as of 05/01/2023) Medications Medication Sig Dispensed Refills Start Date [...] as of this encounter (statuses as of 05/01/2023) Active Problems Problem Noted Date Diagnosed Date HTN, goal below 130/80 01/29/2023 BMI 32.0-32.9,adult [...] as of this encounter (statuses as of 05/01/2023) Resolved Problems Problem Noted Date Diagnosed Date Resolved Date Diabetes mellitus with stage 3 chronic kidney disease 12/11/2022 01/29/2023 PAF (paroxysmal atrial fibrillation) 04/21/2020 11/17/2020 Diabetes mellitus with stage 3 chronic kidney disease 05/19/2019 03/14/2022 Overview: Per CKD protocol Gurjitn bursitis of left elbow 09/04/2018 11/17/2020 Overview: admitted [facility] Essential hypertension with goal blood pressure less [...] as of this encounter (statuses as of 05/01/2023) Immunizations Name Administration Dates Next Due H1N1 2009 Influenza, IM 01/24/2009 Hepatitis B, 20+ yrs 09/13/2009,04/16/2009,03/16 Pneumococcal Conjugate Vacci ne, 20-valent ([id number]) 10/27/2021 Pneumococcal Polysaccharide PPV23 (Pneumovax) 11/10/2005 Seasonal [...] on file documented as of this encounter Plan of Treatment Upcoming Encounters Date Type Department Care Team (Late st Contact Info) Description 05/09/2023 1:40 PM EST Office Visit Family Medicine [address] [place] [phone] Ester Villa MD [address] [place] [address] [place] [address] 07/02/2023 9:00 AM EDT Office Visit Pharmacy, [address] [place] [address] [place] [address] 02/09/2025 10:20 AM EST Office Visit Dermatology [address] [place] [address] Evelina Hoffmann PA-C [address] [place] [address] [place] [address] Health Maintenance Due Date Last Done Comments Colonoscopy 2005 Sigmoidoscopy 2005 Fecal Occult Blood Test 06/02/2017 06/02/2016, 02/01 Depression Screening 11/11/2020 11/12/2019 B-12 10/27/2022 10/27/2021, 11/11, 10/22/2019, Additional history exists Diabetic Foot Exam 10/27/2022 10/27/2021, 0 11/17/2020, 09/22/2019, Additional history exists COVID-19 Vaccine ( season) 2022 Albumin/Creatinine Ratio 05/23/2023 023, 04/27/2021, 05/18/2020, Additional history exists Diabetic Eye Exam 05/25/2023 05/24/2022, , 04/21/2020 (Done elsewhere), Additional history exists GFR 09/05/2023 04/30/2023, 08/11, 12/12/2021, Additional history exists HbA1c 10/08/2023 04/09/2023, 11/10, 09/04/2022, Additional history exists Cologuard 06/04/2024 06/04/2021, 05/11, [...] Not on filedocumented as of this encounter Procedures Procedure Name Priority Date/Time Associated Diagnosis Comments EKG SCANNED RESULT 04/30/2023 documented in this encounter Results * EKG SCANNED RESULT (04/30/2023) 04/30/2023 No Physician Data Unknown EKG documented in this encounter Care Teams Fax Machine Operator Relationship Specialty Start Date End Date Ester Villa MD [address] [place] [address] [place] [address] PCP - General Family Medicine 01/29/23 documented as of this encounter
--- OUTSIDE RECORDS SUMMARY | 2023-05-16 12:00 | External Medical Summary | Summary of Care ---
Author Name Unknown Organization [facility] Address [address] [facility] [place] [address] Phone [phone] Care Team Providers Care Swage Tender Name Role Phone Ester Villa MD Primary Care Provide r Encounter Details Date Type Department Care Team (Late st Contact Info) Description 05/01/2023 Orders Only Family Medicine [address] [place] [address] Ester Villa MD [address] [place] [address] [place] [phone] Allergies Active Allergy Reactions Criticality Noted Date [...] left elbow 09/04/2018 11/17/2020 Overview: admitted [facility] Essential hypertension with goal blood pressure less [...] yrs 09/13/2009,04/16/2009,03/16 Pneumococcal Conjugate Vacci ne, 20-valent ([id number]) 10/27/2021 Pneumococcal Polysaccharide PPV23 (Pneumovax) 11/10/2005 Seasonal [...] 1:40 PM EST Office Visit Family Medicine [address] [place] [phone] Ester Villa MD [address] [place] [address] [place] [address] 07/02/2023 9:00 AM EDT Office Visit Pharmacy, [address] [place] [place] [address] 02/09/2025 10:20 AM EST Office Visit Dermatology [address] [place] [address] Evelina Hoffmann PA-C [address] [place] [address] [place] [address] Health Maintenance Due Date Last Done Comments [...] Procedure Name Priority Date/Time Associated Diagnosis Comments XR CHEST 2 VIEWS Routine 04/30/2023 CHEMISTRY-OUTSIDE Routine 04/30/2023 documented in this encounter Results * (ABNORMAL) CHEMISTRY-OUTSIDE (04/30/2023) Not all results display below - see scan for full detail OUTSIDE LAB (SEE SCANNED REPORT) Comment:SCAN INCLUDES - PREA DMISSION TESTING: CBCD, PT, INR, PTT, BMP CREATININE-OUTSID E LAB 0.82 0.6 - 1.4 MG/DL OUTSIDE LAB (SEE SCANNED REPORT) EGFR-OUTSIDE LAB 94.8 ML/MIN/1.7 3M2 OUTSIDE LAB (SEE SCANNED REPORT) POTASSIUM-OUTSIDE LAB 4.2 3.5 - 5.1 MMOL/L OUTSIDE LAB (SEE SCANNED REPORT) GLUCOSE-OUTSIDE LAB 123(A) 70 - 99 MG/DL OUTSIDE LAB (SEE SCANNED REPORT) HOURS FASTING OUTSID E LAB (SEE SCANNED REPORT) TRIGLYCERIDES-OUT SIDE LAB OUTSIDE LAB (SEE SCANNED REPORT) CHOLESTEROL-OUTSI DE LAB OUTSIDE LAB (SEE SCANNED REPORT) HDL-OUTSIDE LAB OUTS [facility] (SEE SCANNED REPORT) CHOL/HDL RATIO-OUTSIDE LAB OUTSIDE LA B (SEE SCANNED REPORT) LDL (CALCULATED)-OUTS [facility] OUTSIDE LAB (SEE SCANNED REPORT) LDL (DIRECT MEASURE)-OUTSIDE LAB OUTSIDE LAB (SEE SCANNED REPORT) HEMOGLOBIN, I2G-IMSUUKH LAB OUTSIDE LAB (SEE SCANNED REPORT) PHOSPHORUS-OUTSID E LAB OUTSIDE LAB (SEE SCANNED REPORT) PTH-OUTSIDE LAB OUTS [facility] (SEE SCANNED REPORT) MICROALBUMIN RATIO-OUTSIDE LAB OUTSIDE LA B (SEE SCANNED REPORT) PROTEIN, UA-OUTSIDE LAB OUTSIDE LAB (SEE SCANNED REPORT) HEMOGLOBIN-OUTSID E LAB 13.3(A) 14.0 - 18.0 G/DL OUTSIDE LAB (SEE SCANNED REPORT) 04/30/2023 Carrillo Yoo MD LABORATORY OUTSIDE LAB (SEE SCANNED REPORT) * XR CHEST 2 VIEWS (04/30/2023) Anatomical Region Laterality Modality Chest Other 04/30/2023 Carrillo Yoo MD RADIOLOGY (RAD GENERAL) documented in this encounter Care Teams Swage Tender Relationship Specialty Start Date End Date Ester Villa MD [address] [place] [address] [place] [address] PCP - General Family Medicine 01/29/23 documented as of this encounter
[2023-05-16] MEDS ORDERED: MAGNESIUM HYDROXIDE SUSP 30 ML UDC PO PRN (12:08)
[2023-05-16] MEDS ORDERED: METOCLOPRAMIDE HCL INJ 5 MG/ML 2 ML VIAL IV PRN (12:08)
[2023-05-16] MEDS ORDERED: ONDANSETRON INJ 2 MG/ML 2 ML VIAL IV PRN (12:08)
[2023-05-16] MEDS ORDERED: NALOXONE HCL 0.4 MG/1 ML VIAL/CARP IV PRN (12:08)
[2023-05-16] MEDS ORDERED: HYDROmorphone INJ 1 MG/ML SYRINGE IV PRN (12:08)
[2023-05-16] MEDS ORDERED: GABAPENTIN 300 MG CAP PO PRN (12:08)
[2023-05-16] MEDS ORDERED: PHARMACY GLYCEMIC MGMT CONSULT PRN (12:08)
[2023-05-16] MEDS ORDERED: VANCOMYCIN CONSULT ACTIVE PRN (12:08)
[2023-05-16] MEDS ORDERED: bisacodyL 10 MG SUPP PR PRN (12:08)
[2023-05-16] MEDS ORDERED: TAMSULOSIN HCL 0.4 MG CAP PO PRN (12:08)
[2023-05-16] MEDS ORDERED: oxyCODONE/ACETAMINOPHEN 5mg/325mg TAB PO PRN (12:08)
[2023-05-16] MEDS ORDERED: HYDROmorphone INJ 0.5 MG/0.5 ML SYR IV PRN (12:08)
[2023-05-16] MEDS: CLINDAMYCIN/D5W 900 MG/50 ML BAG IV ONE (12:11)
[2023-05-16] MEDS: SODIUM CHLORIDE 0.9% 1,000 ML IV SCH (12:21)
--- NOTE | 2023-05-16 12:28 | Pharmacy Report ---
Pharmacy Glycemic Short Note 2 - Date of Service May 16, 2023 - Glycemic Short BSG Results (Last 24 hours): 05/16/23 05/16/23 05/16/23 06:28 11:05 12:14 POC Glucose 117 H 104 H 105 H OUTPATIENT ANTIDIABETIC REGIMEN: * Metformin 1 g PO BID * Jardiance 25 mg PO daily * Glimepiride 4 mg PO BID * Mounjaro 10 mg SC weekly (Saturdays) HbA1c: 7.2% (04/30/23) ASSESSMENT: * PASTOR is a 63 year old male POD #0 s/p left total knee arthroplasty * No perioperative steroids ordered, but dexamethasone 8 mg PO daily ordered ongoing starting tomorrow morning * Preop BSG of 117 mg/dL, postop BSG of 105 mg/dL * Reasonably well-controlled T2DM as an outpatient on multiple orals and injectable agent PLAN FOR INPATIENT GLYCEMIC CONTROL: * Hold outpatient oral diabetes medications * Basal insulin * Lantus 10 units SC x 1 * Reassess in AM w/ steroids * Bolus insulin * NovoLog per scale ACHS or Q6hrs while NPO * Goal Range: Low 110 mg/dL - High 140 mg/dL * Correction Factor: 25 mg/dL/unit * Nutritional / Prandial insulin per carb ratio of 1 unit per 9 grams CHO consumed
[2023-05-16] MEDS ORDERED: GLUCOSE 40% GEL 15 GM TUBE PO PRN (12:30)
[2023-05-16] MEDS ORDERED: GLUCAGON FOR INJ 1 MG VIAL IM PRN (12:30)
[2023-05-16] MEDS ORDERED: GLUCOSE 10 TAB/TUBE PO PRN (12:30)
[2023-05-16] MEDS ORDERED: DEXTROSE 50% 50 ML SYRINGE IV PRN (12:30)
[2023-05-16] MEDS ORDERED: CARBOHYDRATES FOR HYPOGLYCEMIA PO PRN (12:30)
[2023-05-16] MEDS: KETOROLAC 30 MG/ML VIAL IV SCH (12:40)
[2023-05-16] MEDS: INSULIN ASPART PER UNIT CHARGE SC SCH (12:52)
[2023-05-16] MEDS: LANTUS PER UNIT CHARGE SC ONE (12:55)
[2023-05-16] MEDS: ACETAMINOPHEN 500 MG TAB PO SCH (13:53)
[2023-05-16] MEDS: oxyCODONE HCL IR 5 MG TAB (IMMEDIATE RELEASE) PO PRN (14:56)
--- NOTE | 2023-05-16 17:41 | Orthopedic Progress Note ---
Date of Service May 16, 2023 Assessment & Plan Admission and Anticipated Discharge Date Admission Date: May 16, 2023 Orthopedic Progress Note Afternoon check postop today. Sitting in the chair neurovascular check from sciatic nerve is normal wound dressing clean dry and intact. Doing ankle pumps and the dorsi and plantarflexion can do a straight leg raise head and flexed about 60 degrees. This point time continue with care pathway. Postop x-rays look excellent. Mobilize with knee immobilizer on otherwise it does not need to be on. Follow-up in a.m. for potential discharge tomorrow.
[2023-05-16] MEDS ORDERED: GLIMEPIRIDE 2 MG TAB PO SCH (21:00)
[2023-05-16] MEDS: ATORVASTATIN 40 MG TAB PO SCH (21:15)
[2023-05-16] MEDS ORDERED: VANCOMYCIN HCL 1,750 MG in SODIUM CHLORIDE 0.9% 500 ML IV SCH (21:15)
[2023-05-16] MEDS: SENNA 8.6 MG TAB PO SCH (21:15)
[2023-05-16] MEDS: DOCUSATE SODIUM 100 MG CAP PO SCH (21:15)
[2023-05-17 06:13] LABS: Hematocrit (blood only) 28.4 % (42.0-52.0); Hemoglobin 9.1 g/dl (14.0-18.0); Mean Corpuscular Hemoglobin 27.1 pg (25.0-34.0); Mean Corpuscular Volume 84.5 fL (80.0-100.0); Mean Platelet Volume 9.1 fL (9.4-12.4); Platelet Count 172 K/uL (130-400); RDW Coefficient of Variation 13.6 % (11.5-14.5); RDW Standard Deviation 42.3 fL (36.4-46.3); Red Blood Count 3.36 M/uL (4.70-6.10); White Blood Count 7.37 K/ul (4.8-10.8)
--- NOTE | 2023-05-17 06:33 | Orthopedic Progress Note ---
Date of Service May 17, 2023 Assessment & Plan Admission and Anticipated Discharge Date Admission Date: May 16, 2023 Orthopedic Progress Note POD #1 status post left total knee replacement. Patient is doing well is up in the bed. He notes that he has no chest pain shortness of breath fever chills nausea vomiting or headache. Vital signs are stable he is afebrile. Neurovascular check femoral sciatic nerve is normal. Wound dressing clean dry and intact. Calves nontender. Hematocrit stable at 28. Assessment doing well status post left total knee replacement. Plan is for discharge today start anticoagulation today. Follow-up in 2 weeks for staple movable. Dressing to be changed by physicians video library assistant today to typical postop dressing.
[2023-05-17 06:38] LABS: Calcium 7.8 mg/dl (8.6-10.3); Creatinine Clr Calc Pharmacy 73.2 ml/min; Est GFR (African American) 66.7 ml/min; Est GFR (Non-African American) 57.5 ml/min; Potassium 4.6 mmol/L (3.5-5.1)
[2023-05-17] MEDS: dexAMETHasone 4 MG TAB PO SCH (07:47)
[2023-05-17] MEDS: ASPIRIN 81 MG ECTAB PO SCH (08:24)
[2023-05-17] MEDS: MULTIVITAMIN TAB PO SCH (08:24)
[2023-05-17] MEDS: LOSARTAN POTASSIUM 25 MG TAB PO SCH (08:25)
[2023-05-17] MEDS: CHOLECALCIFEROL 125 MCG (5,000 UNITS) TAB PO SCH (08:25)
[2023-05-17] MEDS: LANTUS PER UNIT CHARGE SC ONE (08:38)
[2023-05-17] MEDS ORDERED: EMPAGLIFLOZIN 25 MG TAB PO SCH (09:00)
[2023-05-17] MEDS ORDERED: CHOLECALCIFEROL 125 MCG (5,000 UNITS) TAB PO SCH (09:00)
[2023-05-17] MEDS: APIXABAN 2.5 MG TAB PO SCH (12:04)
== END 2023-05-17 12:26 | disposition home health service (06) ==
LOC: ASU 05:34 → 3E 05:34